=== PATIENT | male | born 1950 | race Caucasian/White ===

== ENCOUNTER → 2019-08-06 10:32 | Outpatient (ROUT) | payer SELFPAY ==
[2019-08-06 10:39] LABS: Add Manual Diff / Slide Review NO; Basophils Absolute Auto 0 /uL (0-100); Basophils Percent Auto 0.5 % (0-2); Eosinophils Absolute Auto 200 /uL (0-450); Eosinophils Percent Auto 3.3 % (2-4); Hematocrit 41.5 % (41-53); Hemoglobin 13.9 g/dL (13.5-17.5); Lymphocytes Absolute Auto 1300 /uL (1100-4500); Lymphocytes Percent Auto 17.1 % (25-40); Mean Corpuscular HGB Conc 33.4 % (30-36); Mean Corpuscular Hemoglobin 28.9 PG (26-34); Mean Corpuscular Volume 86.4 fL (80-100); Monocytes Absolute Auto 400 /uL (0-900); Monocytes Percent Auto 5.4 % (3-14); Neutrophils Absolute Auto 5500 /uL (1500-7000); Neutrophils Percent Auto 73.7 % (50-75); Platelet Count 282 X10^3/uL (150-400); Red Blood Cell Count 4.81 X10^6/uL (4.5-5.9); Red Cell Distribution Width 15.4 % (11.6-14.8); White Blood Cell Count 7.4 X10^3/uL (4.5-11.0)
[2019-08-06 10:40] LABS: Appearance Urine UA CLOUDY; Bilirubin Urine UA NEGATIVE (NEGATIVE); Color Urine UA RED; Glucose Urine UA NEGATIVE (Negative); Ketones Urine UA NEGATIVE (NEGATIVE); Leukocyte Esterase Urine UA 2+ (NEGATIVE); Nitrite Urine UA NEGATIVE (Negative); Occult Blood Urine UA 3+ (Negative); Protein Urine UA 1+ (Negative); Specific Gravity Urine UA 1.015 (1.000-1.035); Urobilinogen Urine UA 0.2 E.U./dL (0.2); pH Urine UA 7.5 (4.5-8.0)
[2019-08-06 10:51] LABS: Alanine Aminotransferase 140 IU/L (<50); Albumin 3.5 g/dL (3.5-5.0); Alkaline Phosphatase 162 U/L (38-126); Aspartate Aminotransferase 129 IU/L (17-59); BUN Creatinine Ratio 32.5 (6-22); Bacteria Urine Few (2-10); Bilirubin Total 0.7 mg/dL (0.2-1.3); Blood Urea Nitrogen 39 mg/dL (9-20); Calcium 9.4 mg/dL (8.4-10.2); Carbon Dioxide 29 mmol/L (22-32); Chloride 105 mmol/L (98-107); Estimated Glomerular Filt Rate 59.9 mL/min (>60); Globulin 3.6 g/dL (1.7-4.1); Glucose 98 mg/dL (80-110); HEMOLYSIS < 15 (0-50); Potassium 4.1 mmol/L (3.4-5.1); RBC Urine >100/HPF (0-5/HPF); Sodium 139 mmol/L (137-145); Squamous Epithelial Cell Urine 0-1 /HPF (0-5/HPF); Total Protein 7.1 g/dL (6.3-8.2); WBC Urine 1-5/HPF (0-5/HPF)
[2019-08-06 10:52] LABS: Culture Indicated Urine Specimen Cultured
[2019-08-06 23:36] LABS: COVID19 Sendout Not Detected (Not Detect)
== END ==
PROVIDERS: PCP Internal Medicine; Visit Provider Internal Medicine
DX: R31.9 Hematuria, unspecified (principal)
CPT/HCPCS: 80053; 81001; 85025; 87086; 87635

== ENCOUNTER → 2020-12-07 13:36 | Outpatient (CLI) | payer MEDICARE, MEDICAID, SELFPAY ==
--- NOTE | 2020-12-07 13:46 | DI.RAD.S_ITS ---
PROCEDURE: XR TIBIA FUBULA RT 2V INDICATIONS: RT LOWER LEG LESION TECHNIQUE: 2 views of the tibia and fibula were acquired. COMPARISON: None. FINDINGS: Bones: No fractures or dislocations. No suspicious bony lesions. Soft tissues: Nonspecific anterior subcutaneous soft tissue calcifications IMPRESSION: Nonspecific anterior subcutaneous soft tissue calcifications. These could be phleboliths related to hemangioma. These could also be dystrophic in nature. If the patient's pain or other symptoms persist, consider further evaluation with MRI Dictated by: Rob Govea M.D. on 12/07/2020 at 16:34 Approved by: Rob Govea M.D. on 12/07/2020 at 16:36
== END ==
PROVIDERS: PCP Internal Medicine; Referring Provider Nurse Practitioner; Visit Provider Nurse Practitioner
DX: S89.91XD Unspecified injury of right lower leg, subsequent encounter (principal)
CPT/HCPCS: 73590

== ENCOUNTER 2021-03-25 11:58 | Inpatient (IN) | payer MEDICARE, MEDICAID, SELFPAY ==
[2021-03-25] VITALS (18 sets, daily range): BP systolic 116–180; BP diastolic 84–112; PULSE 62–99; RESP 11–21; TEMP 36.1–36.6; O2SAT 96–99; BMI 29.0; BMI 28.8
--- NOTE | 2021-03-25 11:57 | DI.CT.S_ITS ---
PROCEDURE: CT STROKE INDICATIONS: TPA CANDIDATE, facial droop, headache TECHNIQUE: Noncontrast 4.5 mm thick angled axial sections acquired from the foramen magnum to the vertex, with coronal reformats. For radiation dose reduction, the following was used: automated exposure control, adjustment of mA and/or kV according to patient size. COMPARISON: [facility], CT, CT ANGIO HEAD AND NECK, 03/25/2021, 12:09. FINDINGS: Image quality: Excellent. CSF spaces: Basal cisterns are patent. No extra-axial fluid collections. The ventricles are symmetric in size and shape. Brain: There is cerebral volume loss compatible with age and microvascular ischemic disease. Hypodensity involving the right frontal and parietal lobe in an MCA distribution is seen consistent with infarction of indeterminate however associated atrophy in this region suggests a remote infarct.. There is a 5 x 8 mm lacunar infarct in the left thalamus. Multiple smaller lacunar infarcts are present in the bilateral basal ganglia and right thalamus. No intracranial bleeds or masses. There is cerebral volume loss for age, with resultant ventricular and sulcal prominence. There are periventricular and deep white matter chronic small vessel ischemic changes. There is intracranial internal carotid artery atherosclerosis. Skull and face: Calvarium and visualized facial bones appear intact, without suspicious lesions. Sinuses: Visualized sinuses and mastoids are clear. IMPRESSION: 1. 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 2. Cerebral volume loss likely related to age. 3. Microvascular ischemic disease. This study fulfills neurological imaging criteria for inclusion or exclusion of acute stroke therapies based on available published neurological guidelines. Dictated by: Chago Olson M.D. on 03/25/2021 at 11:25 Approved by: Chago Olson M.D. on 03/25/2021 at 11:35
--- NOTE | 2021-03-25 11:58 | DI.CT.S_ITS ---
PROCEDURE: CT ANGIO HEAD AND NECK INDICATIONS: facial droop, headache TECHNIQUE: After the administration of intravenous contrast, 1 mm thick sections acquired from the aortic arch through the [place] of [place]. Post-contrast 4.5 mm thick sections then re-acquired from the foramen magnum to the vertex. 3-dimensional znkedyc-nsqpscfwg-zqhjeblcof (MIP) and/or volume rendering reformats were acquired of the central intracranial vasculature and neck separately. COMPARISON: [facility], CT, CT STROKE, 03/25/2021, 12:06. FINDINGS: Image quality: Excellent. BRAIN: CSF spaces: Ventricles are normal in size and shape. Basal cisterns are patent. No extra-axial fluid collections. Brain: No midline shift. No intracranial bleeds or masses. Hernandez-white matter interface appears intact. Right MCA infarct of indeterminate age but likely chronic given associated atrophy. Multiple lacunar infarcts as described on separately detailed CT of the head dictation. No abnormal enhancement. Skull and face: Calvarium and facial bones appear intact, without suspicious lesions. Orbits appear normal. Sinuses: Sinuses and mastoids are clear. HEAD CT ANGIOGRAPHY: Anterior circulation: Diffuse irregularity of the vessels is consistent underlying atherosclerotic. Intracranial internal carotid arteries are normal in size and flow. The flow within the paired anterior cerebral arteries is normal and symmetric. The flow within the middle cerebral arteries is intact but increased on the left compared to the right, likely due to underlying right ICA occlusion. The anterior communicating artery is seen. No aneurysms are seen. Posterior circulation: Diffuse irregularity of the vessels is consistent with underlying atherosclerotic disease. The left vertebral artery is dominant. 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 The delivery stock clerk are patent and symmetric. NECK CT ANGIOGRAPHY: Carotid system: The great vessels demonstrate a conventional anatomy as they arise from the aortic arch. The origins of the common carotid arteries appear patent. The common carotid arteries demonstrate normal caliber and courses. The right ICA is occluded from the bifurcation cephalad. The left ICA has atherosclerotic disease at the bulb but is patent with no significant stenosis throughout its course. Posterior circulation: The origins of the vertebral arteries both appear widely patent. The more superior extracranial portions of both vertebral arteries also demonstrate normal courses and calibers. They join to form a normal appearing basilar artery. Soft tissues: Visualized neck soft tissues demonstrate no suspicious abnormalities. Bones: No suspicious bony lesions. Visualized cervical spine appears normally aligned. IMPRESSION: 1. Occlusion of the right ICA. 2. Diffuse atherosclerotic disease but with no focal stenosis in the left ICA or vertebral arteries. Findings were discussed with Dr. Vega. Any quantitative measurements of stenosis were performed using NASCET criteria. Dictated by: Chago Olson M.D. on 03/25/2021 at 11:36 Approved by: Chago Olson M.D. on 03/25/2021 at 11:42
[2021-03-25] MEDS: SODIUM CHLORIDE 0.9% 1,000 ML 150 ML IV ×2 (12:22→18:18)
--- NOTE | 2021-03-25 12:24 | ED_ITS ---
HPI - Neuro Symptoms/Deficit General Chief Complaint: Neuro Symptoms/Deficit Stated Complaint: Code stroke Time Seen by Provider: 03/25/21 12:24 Source: EMS Mode of arrival: EMS Limitations: no limitations History of Present Illness HPI Narrative: This is a 70-year-old male who woke up in his usual state. He was complaining of a headache to members at his facility. While playing bingo he started sort of dropping his head down and being less responsive and they noted he seemed to have a new left facial droop. Patient is complaining of some right-sided weakness and difficulty with movement. He has a left-sided deficit from prior stroke. He used to be on warfarin but now is on Eliquis 10 states he takes his meds daily. He has had some difficulty getting his speech out which is new according to staff members. Patient also takes medication for hypertension and dyslipidemia and has a history of atrial fibrillation. He denies any surgeries besides tonsillectomy he does have a PEG tube which he states he takes his medications but he still eats. He denies tobacco, alcohol or illicit. Dr. Chilel is his PCP. On Anticoagulants: Yes (eliquis) Related Data Home Medications Medication Instructions Recorded Confirmed amlodipine 5 mg tablet (Norvasc) 5 mg PO QDAY #0 03/14/16 03/25/21 aspirin 81 mg tablet,delayed 81 mg PO QDAY #0 03/14/16 03/25/21 release apixaban 5 mg tablet (Eliquis) 5 mg PO BID 03/25/21 03/25/21 atorvastatin 40 mg tablet 40 mg PO BEDTIME 03/25/21 03/25/21 carvedilol 12.5 mg tablet 12.5 mg PO BID 03/25/21 03/25/21 doxazosin 2 mg tablet 6 mg PO BEDTIME 03/25/21 03/25/21 famotidine 40 mg PO DAILY 03/25/21 03/25/21 hydralazine 10 mg tablet 20 mg PO DAILY 03/25/21 03/25/21 levothyroxine 125 mcg tablet 125 mcg PO DAILY 03/25/21 03/25/21 losartan 25 mg tablet 25 mg PO DAILY 03/25/21 03/25/21 sertraline 50 mg tablet 50 mg PO DAILY 03/25/21 03/25/21 Allergies Allergy/AdvReac Type Severity Reaction Status Date / Time Macrolide Antibiotics Allergy Intermediate RASH Verified 03/25/21 12:14 [MACROLIDE ANTIBIOTICS] mercury (elemental) Allergy Mild RASH Verified 03/25/21 12:14 [MERCURY (ELEMENTAL)] erythromycin base Allergy Unknown RASH Verified 03/25/21 12:14 [ERYTHROMYCIN BASE] Review of Systems Review of Systems ROS Unobtainable: All systems reviewed & are unremarkable except as noted in HPI and below Hematologic/Lymphatic On Anticoagulants: Yes (eliquis) Patient History Social History household members: none Exam Narrative Exam Narrative: GEN: well nourished, well appearing male, alert and oriented, patient appears to be in mild distress. Patient does have difficulty with some questions. HEENT: Atraumatic, pupils are equal round reactive to light, extraocular movements are intact but unable to have patient follow my fingers he does not follows command, are clear, Throat is clear without any exudates, erythema, tonsillar enlargement or uvular deviation, left facial droop. The nasal labial fold. Patient does have some dysarthria. HEART: Regular rate and rhythm without murmur, clicks, rubs. Pulses are equal in upper and lower extremities LUNGS:Lungs clear to auscultation, no wheezes, rales, crackles, chest moves sy mmetrically ABD:bowel sounds normal, soft, non-tender, no guarding, rebound, rigidity, no masses noted, no hepatosplenomegaly :No CVA tenderness MSCL: Non-tender, patient has chronic left-sided deficit with no movement of his left upper lower extremity. Right upper extremity were able to have him hold his arm but it drifts down to the bed. He is not able to lift it up the bed. Patient is not really able to lift his leg or hold his leg up off the bed. NEURO:CN 2-12 intact, sensation normal. Patient unable to perform heel-azar. Initial Vital Signs Initial Vital Signs: Vital Signs Temperature 97.8 F 03/25/21 12:00 Pulse Rate 86 03/25/21 12:00 Respiratory Rate 21 03/25/21 12:00 Blood Pressure 139/95 H 03/25/21 12:00 Pulse Oximetry 96 03/25/21 12:00 Scores NIH Stroke Scale Level of Conciousness: Alert, keenly responsive Ask month/age: Answers both questions correctly. Open/close eyes, close hand: Performs both tasks correctly Best gaze horizontal: Forced deviation or total gaze paresis not overcome (cannot get patient to follow command but alert and follows other commands) Visual mayo: No visual loss Facial palsy: Minor paralysis, flattened nasolabial fold, asymmetry on smiling Left arm drift: No movement (baseline for patient) Right arm drift: Some effort against gravity, cannot maintain, drifts down to bed Left leg drift: No movement (baseline ) Right leg drift: No effort against gravity Limb ataxia: Present in two limbs Sensory on face/arms/legs: Normal, no sensory loss Best language: No aphasia, normal Dysarthria: Mild to mod,some slurring Extinction or inattention: No abnormality Total NIH Stroke scale score: 19 Course Orders Ordered: ED Orders 03/25/21 11:57 CT Stroke Stat Urine Drug Screen, Rapid Stat EKG-12 Lead Stat 03/25/21 11:58 CT angio head and neck Stat 03/25/21 12:18 Basic Metabolic Panel Stat Complete Blood Count AUTO DIFF Stat Partial Thromboplastin Time Stat Prothrombin Time INR Stat Troponin & CK Cardiac Panel Stat 03/25/21 13:43 COVID19 - ADMIT (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/PCR) Stat Acetaminophen (Acetaminophen 325 Mg Tablet) 650 mg PO Q6HR PRN PRN Reason: Fever/Mild Pain (1-3) Amlodipine Besylate (Amlodipine 5 Mg Tablet) 5 mg PO DAILY DE Apixaban (Apixaban 5 Mg Tablet) 5 mg PO BID DE Aspirin (Aspirin Ec 81 Mg Tablet) 81 mg PO DAILY DE Atorvastatin Calcium (Atorvastatin 20 Mg Tablet) 40 mg PO BEDTIME DE Carvedilol (Carvedilol 3.125 Mg Tablet) 6.25 mg PO DAILY DE Carvedilol (Carvedilol 12.5 Mg Tablet) 12.5 mg PO BID DE Doxazosin Mesylate (Doxazosin 4 Mg Tablet) 6 mg PO BEDTIME DE Famotidine (Famotidine 20 Mg Tablet) 20 mg PO DAILY DE Hydralazine HCl (Hydralazine 10 Mg Tablet) 20 mg PO Q6H PRN PRN Reason: BP > 220/120 Hydralazine HCl (Hydralazine 10 Mg Tablet) 10 mg PO DAILY DE Sodium Chloride (Normal Saline 0.9%) 1,000 mls @ 150 mls/hr IV CONT DE Stop: 03/26/21 09:00 Last Admin: 03/25/21 18:18 Dose: 150 mls/hr Documented by: VERONICA Levothyroxine Sodium (Levothyroxine 125 Mcg Tablet) 125 mcg PO DAILY@0600 [facility] Losartan Potassium (Losartan 25 Mg Tablet) 25 mg PO DAILY [facility] Magnesium Hydroxide (Magnesium Hydroxide 30 Ml Udc) 30 ml PO DAILY PRN PRN Reason: Constipation Naloxone HCl (Naloxone 0.4 Mg/Ml Vial) 0.2 mg IV Q2MIN PRN PRN Reason: Opiate Reversal Sertraline HCl (Sertraline 50 Mg Tablet) 50 mg PO DAILY DE Sodium Chloride (Sodium Chloride 0.9% Flush) 10 ml IV PRN PRN PRN Reason: Flush Sodium Chloride (Sodium Chloride 0.9% Flush) 10 ml IV BID [facility] Discontinued Medications Aspirin (Aspirin 81 Mg Chew Tab) 324 mg PO NOW ONE Stop: 03/25/21 13:25 Last Admin: 03/25/21 14:13 Dose: 324 mg Documented by: PRABHAKAR Dextrose (Dextrose 50 % In Water 25 Gm/50 Ml Syringe) 25 gm IV NOW ONE Stop: 03/25/21 12:26 Last Admin: 03/25/21 12:29 Dose: 12.5 gm Documented by: CASSIUSOTEM Sodium Chloride (Normal Saline 0.9%) 1,000 mls @ 150 mls/hr IV CONT DE Stop: 03/26/21 09:00 Last Infusion: 03/25/21 18:17 Dose: 0 mls/hr Documented by: Infusion: 03/25/21 14:57 Dose: 0 mls/hr Documented by: Admin: 03/25/21 12:22 Dose: 150 mls/hr Documented by: HUGO Reevaluation(s) Reevaluation #1: On recheck patient's weakness has improved significantly he is able to lift his right arm independently as well as his right leg. His speech is also significa ntly improved and his mentation seems improved as well. He also seems to have more appropriate movement of his eyes. Consultations Consultation #1: Tele-stroke Dr. Wong, not tpa candidate. Does not appear to have any changes consistent with having interventional thrombolysis/clot retreival. Agrees with plan for observation for stroke. Time: Consultation #2: Dr. Martinez, and accepts for admission. Patient has had acute right-sided weakn ess with prior stroke. Patient is anticoagulated on Eliquis. We discussed findings today on imaging, labs and recommendations from telestroke. Dr. Martinez did come to the department and see the patient. Vital Signs Vital signs: Vital Signs - 8 hr 03/25/21 12:00 03/25/21 13:02 03/25/21 13:15 Temperature 97.8 F Pulse Rate 86 67 62 Respiratory Rate 21 19 12 Blood Pressure 139/95 H 158/84 H Pulse Oximetry 96 97 97 03/25/21 13:30 03/25/21 13:45 03/25/21 14:00 Temperature Pulse Rate 69 67 71 Respiratory Rate 21 20 12 Blood Pressure 151/84 H 180/88 H Pulse Oximetry 98 96 97 03/25/21 14:01 03/25/21 14:30 Temperature Pulse Rate 66 71 Respiratory Rate 12 11 L Blood Pressure 174/91 H 159/89 H Pulse Oximetry 96 98 MDM - Neuro Symptoms/Deficit Lab Data Result diagrams: 03/25/21 12:18 03/25/21 12:18 Labs: Lab Results 03/25/21 03/25/21 03/25/21 Range/Units 12:18 12:18 12:18 WBC 6.0 (4.5-11.0) X10^3/uL RBC 4.80 (4.5-5.9) X10^6/uL Hgb 14.8 (13.5-17.5) g/dL Hct 44.0 (41-53) % MCV 91.6 (80-100) fL MCH 30.9 (26-34) PG MCHC 33.7 (30-36) % RDW 14.0 (11.6-14.8) % Plt Count 208 (150-400) X10^3/uL Neut % (Auto) 75.7 H (50-75) % Lymph % (Auto) 14.0 L (25-40) % Liberty % (Auto) 7.3 (3-14) % Eos % (Auto) 2.5 (2-4) % Baso % (Auto) 0.5 (0-2) % Neut # (Auto) 4500 (5649-6814) /uL Lymph # (Auto) 800 L (0928-3734) /uL Liberty # (Auto) 400 (0-900) /uL Eos # (Auto) 200 (0-450) /uL Baso # (Auto) 0 (0-100) /uL PT 19.6 H (10.1-12.7) SECONDS INR 1.7 H (0.9-1.3) APTT 41 H (26.4-36.2) SECONDS Sodium 140 (137-145) mmol/L Potassium 4.0 (3.4-5.1) mmol/L Chloride 105 (98-107) mmol/L Carbon Dioxide 30 (22-32) mmol/L BUN 22 H (9-20) mg/dL Creatinine 1.20 (0.66-1.25) mg/dL Estimated GFR 59.7 L (>60) mL/min BUN/Creatinine Ratio 18.3 (6-22) Glucose 88 (80-110) mg/dL Calcium 9.2 (8.4-10.2) mg/dL Total Creatine Kinase < 20 L (55-170) U/L CK-MB (CK-2) TNP CK-MB (CK-2) Rel Index TNP Troponin I < 0.012 (0.01-0.034) ng/mL Triglycerides (35-150) mg/dL Cholesterol (140-199) mg/dL LDL Cholesterol, Calc (<100) mg/dL HDL Cholesterol (40-60) mg/dL SARS-CoV-2 (PCR) (Negative) 03/25/21 03/25/21 Range/Units 12:27 13:43 WBC (4.5-11.0) X10^3/uL RBC (4.5-5.9) X10^6/uL Hgb (13.5-17.5) g/dL Hct (41-53) % MCV (80-100) fL MCH (26-34) PG MCHC (30-36) % RDW (11.6-14.8) % Plt Count (150-400) X10^3/uL Neut % (Auto) (50-75) % Lymph % (Auto) (25-40) % Liberty % (Auto) (3-14) % Eos % (Auto) (2-4) % Baso % (Auto) (0-2) % Neut # (Auto) (7604-6426) /uL Lymph # (Auto) (0086-3880) /uL Liberty # (Auto) (0-900) /uL Eos # (Auto) (0-450) /uL Baso # (Auto) (0-100) /uL PT (10.1-12.7) SECONDS INR (0.9-1.3) APTT (26.4-36.2) SECONDS Sodium (137-145) mmol/L Potassium (3.4-5.1) mmol/L Chloride (98-107) mmol/L Carbon Dioxide (22-32) mmol/L BUN (9-20) mg/dL Creatinine (0.66-1.25) mg/dL Estimated GFR (>60) mL/min BUN/Creatinine Ratio (6-22) Glucose (80-110) mg/dL Calcium (8.4-10.2) mg/dL Total Creatine Kinase (55-170) U/L CK-MB (CK-2) CK-MB (CK-2) Rel Index Troponin I (0.01-0.034) ng/mL Triglycerides 52 (35-150) mg/dL Cholesterol 94 L (140-199) mg/dL LDL Cholesterol, Calc 52 (<100) mg/dL HDL Cholesterol 32 L (40-60) mg/dL SARS-CoV-2 (PCR) Negative (Negative) Point of Care Testing Glucose POC 89 Imaging Data CTA - brain/neck: Radiologist's Impression: Chandu Vences??70??M??1950 ? Allergy/Adv: Macrolide Antibiotics, mercury (elemental), erythromycin base (More??) Close Head/Neck CTA (Signed) Chago Olson - 03/25/[address] (Signed) Chago Olson - 03/25/21 Tibia/Fibula X-Ray (Signed) Rob Govea - 12/07/20 Launch?[address] [address] [address] Scan Report Signed Patient: Chandu Vences MR#: [id number] : 1950 Acct:[id number] Age/Sex: 70 / M Date of Service: 03/25/21 Loc: ED Accession Number: [id number] ?? Procedure: CT angio head and neck Ordering Provider: Leeanne Vega D.O. PROCEDURE:? CT ANGIO HEAD AND NECK ? INDICATIONS:? facial droop, headache ? TECHNIQUE:? ? After the administration of intravenous contrast, 1 mm thick sections acquired from the aortic arch through the [place].? Post-contrast 4.5 mm thick sections then re-acquired from the foramen magnum to the vertex.? 3-dimensional anesrko-eccdhjzqm-wjbmkldbju (MIP) and/or volume rendering reformats were acquired of the central intracranial vasculature and neck separately. ? COMPARISON:? [facility], CT, CT STROKE, 03/25/2021, 12:06. ? FINDINGS:? Image quality:? Excellent.? ? BRAIN:? CSF spaces:? Ventricles are normal in size and shape.? Basal cisterns are patent.? No extra-axial fluid collections.? ? Brain:? No midline shift.? No intracranial bleeds or masses.? Hernandez-white matter interface appears intact.? Right MCA infarct of indeterminate age but likely chronic given associated atrophy.? Multiple lacunar infarcts as described on separately detailed CT of the head dictation.? No abnormal enhancement. ? Skull and face:? Calvarium and facial bones appear intact, without suspicious le sions.? Orbits appear normal.? ? Sinuses:? Sinuses and mastoids are clear.? ? HEAD CT ANGIOGRAPHY:? Anterior circulation:? Diffuse irregularity of the vessels is consistent underlying atherosclerotic.? Intracranial internal carotid arteries are normal in size and flow.? The flow within the paired anterior cerebral arteries is normal and symmetric.? The flow within the middle cerebral arteries is intact but increased on the left compared to the right, likely due to underlying right ICA occlusion.? The anterior communicating artery is seen.? No aneurysms are seen.? ? Posterior circulation:? Diffuse irregularity of the vessels is consistent with underlying atherosclerotic disease.? The left vertebral artery is dominant.? The right vertebral artery has a decreased caliber just proximal to the confluence to form the basilar artery likely congenital.? The financial investment adviser are patent and symmetric.? ? NECK CT ANGIOGRAPHY:? Carotid system:? The great vessels demonstrate a conventional anatomy as they arise from the aortic arch.? The origins of the common carotid arteries appear patent.? The common carotid arteries demonstrate normal caliber and courses.? The right ICA is occluded from the bifurcation cephalad.? The left ICA has atherosclerotic disease at the bulb but is patent with no significant stenosis throughout its course. ? Posterior circulation:? The origins of the vertebral arteries both appear widely patent.? The more superior extracranial portions of both vertebral arteries also demons trate normal courses and calibers.? They join to form a normal appearing basilar artery.? ? Soft tissues:? Visualized neck soft tissues demonstrate no suspicious abnormalities.? ? Bones:? No suspicious bony lesions.? Visualized cervical spine appears normally aligned.? IMPRESSION:? 1. Occlusion of the right ICA. 2. Diffuse atherosclerotic disease but with no focal stenosis in the left ICA or vertebral arteries. ? ? Findings were discussed with Dr. Vega. ? Any quantitative measurements of stenosis were performed using NASCET criteria.? ? ? Dictated by: Chago Olson M.D. on 03/25/2021 at 11:36 ? ? Approved by: Chago Olson M.D. on 03/25/2021 at 11:42?? CT scan - head: Radiologist's Impression: Launch?[place] [address] CT Scan Report Signed Patient: Chandu Vences MR#: [id number] : 1950 Acct:[id number] Age/Sex: 70 / M Date of Service: 03/25/21 Loc: ED Accession Number: [id number] ?? Procedure: CT Stroke Ordering Provider: Leeanne Vega D.O. PROCEDURE:? CT STROKE ? INDICATIONS:? TPA CANDIDATE, facial droop, headache ? TECHNIQUE:? Noncontrast 4.5 mm thick angled axial sections acquired from the foramen magnum to the vertex, with coronal reformats.? For radiation dose reduction, the following was used:? automated exposure control, adjustment of mA and/or kV according to patient size.? ? COMPARISON:? [facility], CT, CT ANGIO HEAD AND NECK, 03/25/2021, 12:09. ? FINDINGS:? Image quality:? Excellent.? ? CSF spaces:? Basal cisterns are patent.? No extra-axial fluid collections.? The ventricles are symmetric in size and shape.? ? Brain:? There is cerebral volume loss compatible with age and microvascular ischemic disease.? Hypodensity involving the right frontal and parietal lobe in an MCA distribution is seen consistent with infarction of indeterminate however associated atrophy in this region suggests a remote infarct..? There is a 5 x 8 mm lacunar infarct in the left thalamus.? Multiple smaller lacunar infarcts are present in the bilateral basal ganglia and right thalamus.? No intracranial bleeds or masses.? There is cerebral volume loss for age, with resultant ventricular and sulcal prominence.? There are periventricular and deep white matter chronic small vessel ischemic changes.? There is intracranial internal carotid artery atherosclerosis.? ? Skull and face:? Calvarium and visualized facial bones appear intact, without suspicious lesions.? ? Sinuses:? Visualized sinuses and mastoids are clear.? ? IMPRESSION:? 1. Right MCA distribution infarction of indeterminate age, however given ass ociated atrophy is likely chronic. 2. Cerebral volume loss likely related to age. 3. Microvascular ischemic disease.? ? This study fulfills neurological imaging criteria for inclusion or exclusion of acute stroke therapies based on available published neurological guidelines.? ? ? Dictated by: Chago Olson M.D. on 03/25/2021 at 11:25 ? ? Approved by: Chago Olson M.D. on 03/25/2021 at 11:35?? ECG Data Attestation: I personally reviewed and interpreted this ECG as follows: Prior ECG tracings: not available for review Interpretation: This is a 70-year-old male comes emergency department with atrial fibrillation, rate of 73 QRS of 96 and QTC of 447. No acute ST changes appreciated. Patient is in AFib. No priors. MDM Narrative Medical decision making narrative: This is a 70-year-old male who had acute onset of facial droop that is new per EMS and his care facility. Patient is unable to lift his arm but can not hold it when lifted. He has difficulty moving his right lower extremity. He is not able to easily follow commands but his NIH is quite high. He has chronic left- sided deficit with no movement. He has a known prior stroke which is seen on his CT angiography and has right ICA occlusion and changes consistent with his prior stroke but no clear changes on CT or CT angiography that would make him a clot retrieval candidate. His INR is 1.7 he is on Eliquis which also removed him from tPA candidacy. I did discuss this with telestroke are reviewed his images closely and feels he is not a candidate for transfer or intervention. Patient did have improvement while he was in the department. He was given aspirin via his PEG tube and admitted by Dr. Her rothman for evaluation and workup for stroke. Stroke Core Measures Contraindications for TPA in CVA: INR>1.7 (on Eliquis) Discharge Plan Departure Patient Disposition: Admitted As Inpatient Clinical Impression: Acute CVA (cerebrovascular accident) Admit Date/Time: 03/25/21 14:34 Admit Provider: Augusto Martinez
[2021-03-25] MEDS: DEXTROSE 50 % IN WATER 25 GM/50 ML SYRINGE IV (12:29)
[2021-03-25 12:30] LABS: Add Manual Diff / Slide Review NO; Basophils Absolute Auto 0 /uL (0-100); Basophils Percent Auto 0.5 % (0-2); Eosinophils Absolute Auto 200 /uL (0-450); Eosinophils Percent Auto 2.5 % (2-4); Hemoglobin 14.8 g/dL (13.5-17.5); Lymphocytes Absolute Auto 800 /uL (1100-4500); Mean Corpuscular HGB Conc 33.7 % (30-36); Mean Corpuscular Hemoglobin 30.9 PG (26-34); Mean Corpuscular Volume 91.6 fL (80-100); Monocytes Absolute Auto 400 /uL (0-900); Monocytes Percent Auto 7.3 % (3-14); Neutrophils Absolute Auto 4500 /uL (1500-7000); Neutrophils Percent Auto 75.7 % (50-75); Platelet Count 208 X10^3/uL (150-400)
[2021-03-25 12:38] LABS: INR 1.7 (0.9-1.3); Prothrombin Time 19.6 SECONDS (10.1-12.7)
[2021-03-25 12:40] LABS: PTT Partial Thromboplastin Tim 41 SECONDS (26.4-36.2)
[2021-03-25 12:44] LABS: BUN Creatinine Ratio 18.3 (6-22); Blood Urea Nitrogen 22 mg/dL (9-20); Calcium 9.2 mg/dL (8.4-10.2); Carbon Dioxide 30 mmol/L (22-32); Chloride 105 mmol/L (98-107); Creatine Kinase < 20 U/L (55-170); Estimated Glomerular Filt Rate 59.7 mL/min (>60); Glucose 88 mg/dL (80-110); HEMOLYSIS < 15 (0-50); Sodium 140 mmol/L (137-145)
[2021-03-25 12:56] LABS: Troponin I < 0.012 ng/mL (0.01-0.034)
--- NOTE | 2021-03-25 13:09 | PC.NURSE ---
Pt gave permission to update friend Paola on the phone.
[2021-03-25] MEDS: ASPIRIN 81 MG CHEW TAB 324 MG PO (14:13)
--- NOTE | 2021-03-25 14:24 | PC.NURSE ---
Pt states he eats food but receives medications through his peg tube. Aspirin administered through peg tube without difficulty, drains to gravity.
[2021-03-25 14:34] LABS: COVID19 - ADMIT (NP swab/PCR) Negative (Negative)
--- NOTE | 2021-03-25 15:25 | PC.NURSE ---
Day shift: Pt on AC unit from ED at approx 1510. He is calm and cooperative with care. Answers questions appropriately. Very limited movement left side upper and lower extremities. Placed on tele. Denies any pain. PEG tube appears patent. Skin on his coccyx area intact. Skin on his back with no signs of abrasions or breakdown. He does have a brief in place. Oriented to room and call light. Bed alarm is on. High fall risk protocol in place. He is A&Ox4. Prefers the use of his PEG tube for medications. He also states that they use the PEG tube for meds at [facility].
--- NOTE | 2021-03-25 15:57 | DI.MRI.S_ITS ---
PROCEDURE: MR HEAD/BRAIN WO CON INDICATIONS: CVA TECHNIQUE: Noncontrast axial T1 spin echo, axial T2 fast spin echo, sagittal and axial FLAIR, coronal T2 fast spin echo, axial gradient echo, axial diffusion and ADC through the brain. COMPARISON: [facility], CT, CT STROKE, 03/25/2021, 12:06. FINDINGS: Image quality: Excellent. CSF Spaces: Basal cisterns are patent. No extra-axial fluid collections. Ventricles are normal in size and shape. Brain: No intracranial masses or hemorrhage. Hernandez/white matter interface is normal. Brainstem appears normal. Punctate subcortical and periventricular T2/FLAIR signal is consistent with microvascular ischemic disease. Punctate subcortical and periventricular T2/FLAIR signal is consistent with microvascular ischemic disease. Multiple areas of lacunar infarcts in the right basal ganglia and bilateral thalami. There is cystic encephalomalacia in the right frontal lobe. Low signal on gradient images in the right basal ganglia is consistent with blood products from remote hemorrhage. No evidence of acute hemorrhage. Diffusion-weighted images demonstrate no acute ischemic insult. No chronic ischemic insults. Flow voids in the right ICA consistent with known right ICA occlusion are noted. Skull and face: Calvarium has normal marrow signal. Orbits appear normal. Sinuses: Sinuses and mastoids are clear. IMPRESSION: 1. No acute intracranial abnormality. No acute ischemia. No acute hemorrhage. 2. Remote infarct with cystic encephalomalacia and evidence of remote hemorrhage in the right frontal lobe. Dictated by: Chago Olson M.D. on 03/25/2021 at 16:10 Approved by: Chago Olson M.D. on 03/25/2021 at 16:16
--- NOTE | 2021-03-25 15:57 | DI.ECHO.S_ITS ---
[facility] +---------+ [facility] +---------+ : : [address] : [address] : : : : [id number] : : : : Phone: [phone]+ Echocardiogram Report + + :Name: PHYLLIS COX Study Date: 03/26/2021 Height: 70 in : :[facility] ReadingLocation: Weight: 202 lb : : Gender: Male BSA: 2.1 m2 : :: 1950 Age: 70 yrs BP: 148/95 mmHg: :Reason For Study: CVA : :Ordering Physician: CHANDLER, : :FRACISCO Performed By: Elizabeth Crowe : :Referring: FRACISCO ARTEAGA : + + Interpretation Summary Afib with controlled rate. Normal LV size, wall thickness, wall motion and LV systolic function. EF is 60-65%. Severe LA enlargement; mild RA enlargement. Aortic sclerosis without stenosis. No prior study available for comparison. Procedure: A two-dimensional transthoracic echocardiogram with color flow and Doppler was performed. The study quality was technically adequate. There is no prior echocardiogram noted for this patient. The patient was in atrial fibrillation with heart rates between 62-80 bpm during the exam. Left Ventricle: The left ventricle is normal in size. There is mild-moderate concentric left ventricular hypertrophy. The ejection fraction is estimated to be 60-65%. Diastolic function could not be accurately assessed due to atrial fibrillation. Right Ventricle: The right ventricle is mildly dilated. The right ventricular systolic function is normal. Atria: The left atrium is severely dilated. The right atrium is mildly dilated. There is no Doppler evidence for an interatrial shunt. Mitral Valve: The mitral valve is normal in structure and function. There is trace mitral regurgitation. Aortic Valve: The aortic valve is trileaflet. The aortic valve opens well. The aortic valve is mildly calcified. There is no aortic valve stenosis. No aortic regurgitation is present. Tricuspid Valve: The tricuspid valve is normal in structure and function. There is trace tricuspid regurgitation. Pulmonic Valve: The pulmonic valve is not well seen, but is grossly normal. There is no pulmonic valvular regurgitation. Great Vessels: The aortic root is normal size. The inferior vena cava was not well visualized. Pericardium/ Pleura There is no pericardial effusion. There is no pleural effusion. MMode/2D Measurements & Calculations LVIDd: 4.6 cm LVOT diam: 2.1 cm LVIDs: 3.1 cm Ao root diam: 3.5 cm FS: 31.8 % asc Aorta Diam: 4.0 cm IVSd: 1.5 cm Ao Arch Diam (Prox Trans): 3.6 cm LVPWd: 1.2 cm LV ruiz. diameter/BSA (cm/m^2): 2.2 LV sys. diameter/BSA (cm/m^2): 1.5 LA A2 area: 30.2 cm2 RA long axis: 6.9 cm LA A4 area: 31.1 cm2 RA area: 25.5 cm2 LA length (vol): 7.0 cm RA vol: 79.7 ml LA vol: 114.0 ml RA : 38.0 ml/m2 LA vol index: 54.4 ml/m2 RVD1 (basal): 4.4 cm TAPSE: 2.0 cm Doppler Measurements & Calculations Ao V2 max: 161.9 cm/sec LVOT Max Jesse: 76.9 cm/sec Ao V2 mean: 107.3 cm/sec LV V1 max P.4 mmHg Ao max P.5 mmHg LV V1 VTI: 14.0 cm Ao mean P.3 mmHg ASUNCION(I,D): 1.6 cm2 Ao V2 VTI: 29.9 cm ASUNCION(V,D): 1.7 cm2 sev ratio: 0.47 ASUNCION indexed to BSA (cm^2/m^2): 0.78 MV E max jesse: 75.3 cm/sec TR max jesse: 187.8 cm/sec MV A max jesse: 3.3 cm/sec TR max P.1 mmHg MV E/A: 23.0 PA V2 max: 70.1 cm/sec Med Peak E' Jesse: 8.2 cm/sec PA V2 mean: 48.7 cm/sec E/E' med: 9.2 PA mean P.1 mmHg Lat Peak E' Jesse: 10.6 cm/sec PA pr(Accel): 19.1 mmHg E/E' lat: 7.1 E/e' average: 8.1 MV dec time: 0.26 sec SV(LVOT): 48.9 ml Electronically signed by: Sangeetha Egan M.D. on Reading Physician:03/26/2021 12:43 PM
--- NOTE | 2021-03-25 16:11 | PM.HP.1 ---
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 Patient has been living at [facility] since his stroke in July 2019 which left him paralyzed on the left side. He states that since this morning he has had a persistent headache and felt weak which persisted for a number of hours. He was then found slumping while playing bingo. He was noted to have new right side weakness on initial exam by ER physician as well as known chronic left hemiparesis. He was also noted to have new left facial droop and apparently new dysarthria. Head CT showed likely chronic right MCA distribution stroke without acute findings. 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 Labs were unremarkable. He has otherwise felt fine without fever, chills, dyspnea, cough, chest pain or palpitations. Patient had significant improvement in neurological findings with improvement in right side weakness, speech and eye movements by the time he left the emergency department. SARs COVID 2 PCR negative. Meds will be updated but he is on atorvastatin, famotidine, hydralazine as needed, sertraline, amlodipine, losartan, carvedilol, levothyroxine, doxazosin, aspirin, apixaban. Social history: Lives at [facility]. Nonsmoker. Family history: Unknown Meds Home Medications and Allergies Home Medications Medication Instructions Recorded Confirmed Type amlodipine 5 mg tablet (Norvasc) 5 mg PO QDAY #0 03/14/16 History aspirin 81 mg tablet,delayed 81 mg PO QDAY #0 03/14/16 History release atorvastatin 80 mg tablet (Lipitor) 80 mg PO QDAY #0 03/14/16 History clopidogrel 75 mg tablet 75 mg PO QDAY #0 03/14/16 History hydrochlorothiazide 12.5 mg capsule 12.5 mg PO QDAY #0 03/14/16 History levothyroxine 100 mcg tablet 100 mcg PO QAM #0 12/13/16 History lisinopril 10 mg tablet 20 mg PO QDAY #0 03/14/16 History metoprolol succinate 25 mg 25 mg PO QDAY #0 03/14/16 History tablet,extended release 24 hr (Toprol XL) oxycodone-acetaminophen 5 mg-325 1 - 2 tab PO Q6HP PRN #25 tab 03/16/16 Rx mg tablet (Percocet) Allergies Allergy/AdvReac Type Severity Reaction Status Date / Time Macrolide Antibiotics Allergy Intermediate RASH Verified 03/25/21 12:14 [MACROLIDE ANTIBIOTICS] mercury (elemental) Allergy Mild RASH Verified 03/25/21 12:14 [MERCURY (ELEMENTAL)] erythromycin base Allergy Unknown RASH Verified 03/25/21 12:14 [ERYTHROMYCIN BASE] Review of Systems Review of Systems Narrative: Complete 10 point ROS is negative except as noted above. Exam Vital Signs (past 8 hours): - 03/25/21 12:00 03/25/21 13:02 03/25/21 13:15 Temperature 97.8 F Pulse Rate 86 67 62 Respiratory Rate 21 19 12 Blood Pressure 139/95 H 158/84 H Pulse Oximetry 96 97 97 03/25/21 13:30 03/25/21 13:45 03/25/21 14:00 Temperature Pulse Rate 69 67 71 Respiratory Rate 21 20 12 Blood Pressure 151/84 H 180/88 H Pulse Oximetry 98 96 97 03/25/21 14:01 03/25/21 14:30 03/25/21 14:45 Temperature Pulse Rate 66 71 79 Respiratory Rate 12 11 L 13 Blood Pressure 174/91 H 159/89 H 159/97 H Pulse Oximetry 96 98 03/25/21 15:00 Temperature Pulse Rate 68 Respiratory Rate 15 Blood Pressure Pulse Oximetry 99 Oxygen Delivery Method Room Air Narrative Exam Narrative: General: Alert mildly obese male in no acute distress HEENT: There is mild left facial droop, EOMI, visual mayo intact grossly Neck: No lymphadenopathy Lungs: Clear to auscultation Heart: Irregularly irregular without murmur Abdomen: Soft, peg tube noted in normal position, nontender, no HSM Extremities: No edema Neurological: Affect normal, well oriented, probably mild dysarthria but speech is very easily understandable, chronic dense left hemiparesis noted, at this time he has 5/5 strength and intact sensation in the right upper and lower extremities, finger to nose and heel to azar intact on the right Objective Labs Result Diagrams: 03/25/21 12:18 03/25/21 12:18 Labs: Laboratory Results - last 24 hr 03/25/21 03/25/21 03/25/21 12:18 12:18 12:18 WBC 6.0 RBC 4.80 Hgb 14.8 Hct 44.0 MCV 91.6 MCH 30.9 MCHC 33.7 RDW 14.0 Plt Count 208 Neut % (Auto) 75.7 H Lymph % (Auto) 14.0 L Randolph % (Auto) 7.3 Eos % (Auto) 2.5 Baso % (Auto) 0.5 Neut # (Auto) 4500 Lymph # (Auto) 800 L Randolph # (Auto) 400 Eos # (Auto) 200 Baso # (Auto) 0 PT 19.6 H INR 1.7 H APTT 41 H Sodium 140 Potassium 4.0 Chloride 105 Carbon Dioxide 30 BUN 22 H Creatinine 1.20 Estimated GFR 59.7 L BUN/Creatinine Ratio 18.3 Glucose 88 Calcium 9.2 Total Creatine Kinase < 20 L CK-MB (CK-2) TNP CK-MB (CK-2) Rel Index TNP Troponin I < 0.012 SARS-CoV-2 (PCR) 03/25/21 13:43 WBC RBC Hgb Hct MCV MCH MCHC RDW Plt Count Neut % (Auto) Lymph % (Auto) Randolph % (Auto) Eos % (Auto) Baso % (Auto) Neut # (Auto) Lymph # (Auto) Randolph # (Auto) Eos # (Auto) Baso # (Auto) PT INR APTT Sodium Potassium Chloride Carbon Dioxide BUN Creatinine Estimated GFR BUN/Creatinine Ratio Glucose Calcium Total Creatine Kinase CK-MB (CK-2) CK-MB (CK-2) Rel Index Troponin I SARS-CoV-2 (PCR) Negative Assessment & Plan Assessment & Plan narrative: 1. Acute TIA versus CVA -presented with new headache, weakness, left facial droop and found slumping with improvement in ED -has chronic left hemiparesis from prior CVA -etiology likely small vessel/ischemic, patient has AFib but on chronic anticoagulation -head CT chronic old right CVA, CTA with occluded right ICA and otherwise diffuse atherosclerotic disease -telemetry -echo -brain MR -IV fluids -regular diet if passes swallow screen -ST, PT and OT -patient is chronically wheelchair bound at long-term facility but states is normally able to assist with transfers 2. Chronic atrial fibrillation -rate controlled -continue apixaban 3. Chronic hypertension, controlled -continue routine meds amlodipine, losartan, carvedilol, doxazosin, he also has outpatient order for hydralazine as needed 4. Hypothyroidism -continue routine levothyroxine 5. Hyperlipidemia -check lipid panel -continue high-intensity atorvastatin Admit status: Observation Code status: Full code, has POLST Time Spent With Patient Critical Care time: I spent a total of [] minutes of critical care time on this patient's care today; this time is exclusive of procedural time.
[2021-03-25 16:21] LABS: Cholesterol 94 mg/dL (140-199); HDL Cholesterol 32 mg/dL (40-60); LDL Cholesterol Calculated 52 mg/dL (<100); Triglycerides 52 mg/dL (35-150)
--- NOTE | 2021-03-25 16:21 | PC.NURSE ---
Day shift: Off unit for MRI at approx 1620. Pt passed RN sae hernandez with this writer editor at approx 1600 today.
--- NOTE | 2021-03-25 16:57 | PC.NURSE ---
Day shift: Back in room from MRI. Tele placed as well at approx 1700.
[2021-03-25] MEDS: APIXABAN 5 MG TABLET PO (21:19)
[2021-03-25] MEDS: ATORVASTATIN 20 MG TABLET 40 MG PO (21:19)
[2021-03-25] MEDS: DOXAZOSIN 4 MG TABLET 6 MG PO (21:20)
[2021-03-25] MEDS: carvediloL 12.5 MG TABLET PO (21:21)
[2021-03-26] VITALS (20 sets, daily range): BP systolic 89–159; BP diastolic 54–93; PULSE 50–89; RESP 14–18; TEMP 35.9–36.6; O2SAT 92–100
[2021-03-26] MEDS: SODIUM CHLORIDE 0.9% 1,000 ML 150 ML IV (03:30)
[2021-03-26] MEDS: LEVOTHYROXINE 125 MCG TABLET PO (06:27)
[2021-03-26] MEDS: SERTRALINE 50 MG TABLET PO (09:36)
[2021-03-26] MEDS: carvediloL 12.5 MG TABLET PO (09:36)
[2021-03-26] MEDS: LOSARTAN 25 MG TABLET PO (09:36)
[2021-03-26] MEDS: FAMOTIDINE 20 MG TABLET PO (09:36)
[2021-03-26] MEDS: AMLODIPINE 5 MG TABLET PO (09:36)
[2021-03-26] MEDS: carvediloL 3.125 MG TABLET 6.25 MG PO (09:37)
[2021-03-26] MEDS: HYDRALAZINE 10 MG TABLET 20 MG PO (09:37)
[2021-03-26] MEDS: ASPIRIN EC 81 MG TABLET PO (09:37)
[2021-03-26] MEDS: APIXABAN 5 MG TABLET PO ×2 (09:37→20:49)
[2021-03-26] MEDS: SODIUM CHLORIDE 0.9% FLUSH 10 ML IV ×2 (09:38→21:57)
--- NOTE | 2021-03-26 11:45 | OT.IP.EVAL ---
Occupational Therapy Inpatient Evaluation/Re-Eval M1 PT/OT-IP Prior Functional Status Start: 03/26/21 11:44 Freq: NEEDED Status: Active Protocol: Document 03/26/21 11:45 [facility] (Rec: 03/26/21 12:09 [facility] [id number]) Medical Review Prior Functional Status Medical History Reviewed Yes Communication Independent Mobility and Gait Pt uses a wc at [facility] to get around by pushing the wc wheel with his right hand and using his right foot to help steer/guide the wc. Pt uses a transfer pole with one extensive person assist to help get to his wc and bed. Activities of Daily Living and IADL's Per [facility], pt able to eat after set-up otherwise needing extensive assist for all other needs. Social History Household Members none Living Arrangements Assisted Living M2 OT-IP Current Condition Start: 03/26/21 11:44 Freq: Status: Active Protocol: Document 03/26/21 11:45 [facility] (Rec: 03/26/21 12:09 [facility] [id number]) Occupational Therapy Current Condition Current Condition Evaluation Date 03/26/21 Treatment Diagnosis TIA Diagnosis Onset Date 03/25/21 M3 OT- IP Subjective and Pain Start: 03/26/21 11:44 Freq: Status: Active Protocol: Document 03/26/21 11:45 [facility] (Rec: 03/26/21 12:09 [facility] [id number]) OT- Subjective Occupational Therapy Visit Type Type Initial Evaluation Visit Start Time 10:40 Visit Stop Time 11:45 Total Visit Minutes 65 Occupational Therapy Visit Comments Patient Comments Pt agreed to get up for OT eval. PT also in at the edge of the session to help determine his mobility needs. Patient/Caregiver Goals To go back to [facility]. OT Pain Assessment Pain When Pain Assessed At Rest Pain Present Pain Present Denied Pain M4 OT- IP ADL's Start: 03/26/21 11:44 Freq: Status: Active Protocol: Document 03/26/21 11:45 [facility] (Rec: 03/26/21 12:09 [facility] [id number]) OT [id number] Comments OT Self-Feeding Comments NOt at meal time. Pt states medications are give through his peg tube, otherwise he is on a regular diet per pt. OT ADL-Grooming Comments OT Grooming Comments Pt not wanting to do. OT ADL-Oral Care Comments Oral Care Comments Pt refused. OT ADL-Dressing General Eval Upper Body Dressing Ability Maximum Assistance Lower Body Dressing Ability Total Assistance OT ADL-Toileting General Evaluation Toileting Ability Total Assistance Areas Needing Assistance Manage Clothing,Perform Perineal Hygiene Comments OT Toileting Comments Total assist for brief and hygiene needs while in bed. OT ADL-Bathing Bathing Type Bathing Type Sponge Bath Comments OT Bathing Comments Sponge bath completed while in bed. Pt states Ilda uses a rolling shower chair for showers. M6 OT- IP Functional Cognition Start: 03/26/21 11:44 Freq: Status: Active Protocol: Document 03/26/21 11:45 [facility] (Rec: 03/26/21 12:09 [facility] [id number]) Cognitive Factors Limiting Selfcare Function Cognitive Ability Level of Alertness Alert Patient Orientation Name,Place,Situation Attention Span Ability Capable of Focused Attention, Capable of Sustained Attention Ability to Follow Commands Able to Follow One Step Commands Cognitive Comments Cognitive Assessment Comments Pt able to follow commands appropriately for ADl and mobility needs. OT- Vision and Hearing OT- Hearing Assessment OT- Hearing Assessment WFL OT- Vision Assessment Visual Acuity WFL M7 OT- IP Mobility and Balance Start: 03/26/21 11:44 Freq: Status: Active Protocol: Document 03/26/21 11:45 [facility] (Rec: 03/26/21 12:09 [facility] [id number]) OT- Bed Mobility Assessment Rolling Type of Rolling Roll to Left Level of Assistance Contact Guard Assistance Supine to Sit Supine to Sit Assist Maximum Assistance,1 Person Assistance OT-Transfer Assessment Sit to and From Stand Sit to and from Stand Maximum Assistance,1 Person Assistance,2 Person Assistance Transfers Transfer Ability Maximum Assistance,1 Person Assistance Technique Transfer Destination Bed,Chair,Wheelchair Transfer Technique Stand Step Pivot Devices Transfer Assistive Devices None,Gait Belt Comments Mobility Comments Pt MAX A to help get from side lying to sitting upright. Pt able to stand with therapist MAXAX 1 and needing another person for safety to help get his hips over to the recliner. Pt uses a transfer pole at home to assist, however the hospital does not have one to use and therefore pt needing more assist for transfer. Able to place shoes on pt and transfer with PT was a bit smoother and able to stand better and transfer with MAXAx1 and MODA X 1 for safety. Pt able to mobilize in a manual wc once assisted to get there. Per pt feels at his baseline for mobility needs and agrees that use of the transfer pole versus therapist to hold to will be much easier to move and manage at home. OT- Gait Assessment Comments Gait Ability Comments Pt does not ambulate and use of manual wc to get around. OT- Balance Assessment Sitting Balance and Reactions Static Sitting Balance Ability Fair Dynamic Sitting Balance Ability Poor Standing Balance and Reactions Static Standing Balance Ability Poor Dynamic Standing Balance Ability Poor M8 OT- IP Objective Assessments Start: 03/26/21 11:44 Freq: Status: Active Protocol: Document 03/26/21 11:45 [facility] (Rec: 03/26/21 12:09 [facility] [id number]) OT Gross Range of Motion Upper Extremity Range of Motion Assessment Left Impaired OT Strength Upper Extremity Strength Assessment Left Impaired OT-Muscle Tone Assessment Muscle Tone WNL No Comments Muscle Tone Comments Hypertonicity LLE > LUE OT Sensation Assessment Comments Summary Comments INtact for light touch BUE. M9 OT- IP Assessment and Plan Start: 03/26/21 11:44 Freq: Status: Active Protocol: Document 03/26/21 11:45 [facility] (Rec: 03/26/21 12:09 [facility] [id number]) OT Summary Assessment and Plan Potential Rehabilitation Potential Good Analytic Complexity at Evaluation Low Summary OT Impairments Balance,Functional Mobility Progress Towards Goals Progressing Toward Goals Assessment Summary Pt here due to right sided weakness and probable TIA. Pt feels that he is back to baseline for needs. Pt lives at [facility] and staff states that he is able to eat after set-up otherwise needing extensive assist for all ADl needs. Pt has a transfer pole in which he transfers with one extensive assist to his wc or back to bed. Pt able to demonstrate ability to mobilize himself in a manual wc when assisted to get there and back from OT/PT. Pt looking to go back to [facility] when medically stable. Goals Days to Meet Goals 1 Frequency of Treatment Frequency Of Treatment Once a Day Treatment Plan OT Treatment Plan Functional Mobility Discharge Recommendations OT Discharge Recommendations Home with assist Available Transportation Needs at Discharge Wheelchair/Cabulance
--- NOTE | 2021-03-26 12:40 | DI.CT.S_ITS ---
PROCEDURE: CT HEAD/BRAIN WO CON INDICATIONS: acute LOC TECHNIQUE: Noncontrast 4.5 mm thick angled axial sections acquired from the foramen magnum to the vertex, with coronal and sagittal reformats. For radiation dose reduction, the following was used: automated exposure control, adjustment of mA and/or kV according to patient size. COMPARISON: None. FINDINGS: Image quality: Excellent. CSF spaces: Basal cisterns are patent. No extra-axial fluid collections. Ventricles are normal in size and shape. Brain: No midline shift. No intracranial mass or hemorrhage. There is a right frontal infarct with associated atrophy and encephalomalacia. Diffuse cortical atrophy is present. The intracranial vasculature has atherosclerotic calcifications. Diffuse volume loss is seen. Skull and face: Calvarium and visualized facial bones are intact, without suspicious lesions. Sinuses: Visualized sinuses and mastoids are clear. IMPRESSION: 1. Remote right frontal infarct with associated atrophy and encephalomalacia. 2. No acute intracranial abnormality. 3. Microvascular ischemic disease and volume loss. Dictated by: Chago Olson M.D. on 03/26/2021 at 12:36 Approved by: Chago Olson M.D. on 03/26/2021 at 12:41
--- NOTE | 2021-03-26 12:44 | CM.DANOTE ---
DCP Assessment: Patient is a 70 yr old male who was admitted for poss Stroke. CM met with patient at the bedside and explained role. patient was alert and oriented x3 at time of visit. Patient came here from [facility] facility and plans on returning there at [place]. CM called [facility] and LVM with them to see if they can accept the patient back at [place]. CM will follow up with [facility] tomorrow since admissions is not answering today due to the holiday. Patient had staff emergency today - had a syncopal episode and was found on the ground. patient now awake but is getting work up following syncopal episode. I: Medicaid and medicare Plan: DC back to [facility] when medically stable- CM needs to get a hold of [facility] to make sure they will accept the patient back at [place]. Jimena is not working today due to the holiday and cm will follow up tomorrow to make sure DC plan is appropriate. Margo victoria Discharge Planning/Care Management CM Discharge Assessment Start: 03/26/21 12:32 Freq: Status: Active Protocol: Document 03/26/21 12:32 [facility] (Rec: 03/26/21 12:43 [facility] [id number]) Discharge Planning Assessment Assigned Choirmaster Margo Ruster DPOA/Assigned Designee Name karina Lu- family/friend Contact Information [phone] Advance Directives? No History Provided By Patient,Medical Record Has Patient been admitted in last 30 No days? Prior Living Arrangements Assisted Living Comment Patient came from [facility] Household Members none Type of transporation used prior to Relies on Others admit Willing to Return to Facility? Yes: [facility] Independent with ADL's No Is patient alert and oriented? Yes Caregiver for Another No DME Already Rented / Owned Wheelchair Patient/Family Preference Jail Facility Comment plan is to DC back to [facility] when medically stable Barriers to Discharge No Discharge Plan Jail Facility Referrals Initiated None needed Whiteboard Updated in Patient Room with Yes name and ext. # of Choirmaster Review Status In Process Next Review Type Continued Stay Review
--- NOTE | 2021-03-26 12:46 | PC.NURSE ---
RN (Leonarda) and I helped the PT help the patient to the chair at 11:15. Patient was sleeping at lunch time, I put the lunch tray by the side of the chair and let the RN know that I would go in shortly to set it up for him once he woke up. Leonarda came to me at 12:30 and alerted me that the patient was laying on the floor (on his left side, smiling and sleeping). Patient was difficult to arouse, and showed no signs of redness on his head, knees, elbows. He did state that his shoulder hurt (left). 2 sets of vitals were taken, one on the floor and one in bed. We placed a sling under him and martha lifted him back into bed.
--- NOTE | 2021-03-26 12:48 | PC.NURSE ---
Day shift: Pt OOB w/ PT/OT and sitting in chair. Found on the floor in front of chair by this business writer at approx 1230. Rapid response called approx [address] Martinez in room to access as well at approx 1231. Pt lethargic and tired. BP 85/45 and then BP 105/55 when back in bed. Michelle lifted into the bed and he tolerated this well. Denies any pain. Head CT ordered by Dr Martinez and a 500ml bolus of IV fluid. New IV started in right upper arm by DAVID Nicolas. hazardous waste management specialist Sherri in room for this event as well. Pt is back in bed w/ no s/s of pain or discomfort. He is sleeping. Pt's HR at this time 54. Dr Martinez aware. SHAE Amaya at this event as well. Pt did not have a chair alarm in place. Pt also stated that he was trying to get up out of the chair. Call light was in reach and door to room was open.
--- NOTE | 2021-03-26 12:50 | PT.IIE ---
Physical Therapy Inpatient Evaluation/Re-Eval M1 PT/OT-IP Prior Functional Status Start: 03/26/21 11:44 Freq: NEEDED Status: Active Protocol: Document 03/26/21 12:38 [facility] (Rec: 03/26/21 12:49 [facility] [id number]) Medical Review Prior Functional Status Medical History Reviewed Yes Communication Independent Mobility and Gait Pt uses a wc at [facility] to get around by pushing the wc wheel with his right hand and using his right foot to help steer/guide the wc. Pt uses a transfer pole with one extensive person assist to help get to his wc and bed. Activities of Daily Living and IADL's Per [facility], pt able to eat after set-up otherwsie needing extensive assist for all other needs. Social History Household Members none Living Arrangements Assisted Living M2 PT-IP Current Condition Start: 03/26/21 12:37 Freq: NEEDED Status: Active Protocol: Document 03/26/21 12:38 [facility] (Rec: 03/26/21 12:49 [facility] [id number]) Physical Therapy Current Condition Current Condition Evaluation Date 03/26/21 Treatment Diagnosis TIA M3 PT-IP Subjective Start: 03/26/21 12:37 Freq: NEEDED Status: Active Protocol: Document 03/26/21 12:38 [facility] (Rec: 03/26/21 12:49 [facility] [id number]) Subjective Physical Therapy Visit Type Type Initial Evaluation Visit Start Time 11:20 Visit Stop Time 11:45 Total Visit Minutes 25 Number of FIRE SUPPORT MAN Visits 0 Physical Therapy Visit Comments Patient Comments Pt feels like he is close to his normal mobility M4 PT-IP Mobility and Gait Start: 03/26/21 12:37 Freq: NEEDED Status: Active Protocol: Document 03/26/21 12:38 [facility] (Rec: 03/26/21 12:49 [facility] [id number]) PT-Transfer Assessment Sit to and From Stand Sit to and from Stand Maximum Assistance,1 Person Assistance,2 Person Assistance ,Use of Upper Extremities Equipment Transfer Assistive Device Gait Belt Orthotic/Prosthetic Devices or Brace: No Transfers Transfer Destination Chair Transfer Technique Squat Pivot Transfer Ability Level of Assist Maximum Assistance,1 Person Assistance,2 Person Assistance Comments Mobility Comments pt seated in chair upon PT arrival. He was able to scoot fwd in his chair indep and did transfer to recliner to WC w/ pt holding PT and max A by PT and mod to max A by OT behind as pt's foot slipped out from under him and fwd some during transfer. Pt typically uses shoes so shoes were placed on pt and he was able to do transfer backt o recliner w/ max A x1 PT and mod A by OT for safety w/pt holding PT. Hospital does not have transfer pole and if pt had solid transfer pole to hold, pt would likely be able to do max A x1 transfer w/pole as he would at home. He did help a lot w/PT and was able to press through RLE and pull on PT some w/UE but not as much as he would w/pole.P t required assist to scoot back in chair and was left in recliner w/ call light in reach> When in WC, pt did demo he could sequence fwd w/use of RLE on floor and RUE on wheel. PT-Balance Assessment Sitting Balance and Reactions Static Sitting Balance Ability Fair Dynamic Sitting Balance Ability Poor Standing Balance and Reactions Static Standing Balance Ability Poor Dynamic Standing Balance Ability Poor M5 PT-IP Objective Assessments Start: 03/26/21 12:37 Freq: NEEDED Status: Active Protocol: Document 03/26/21 12:38 [facility] (Rec: 03/26/21 12:49 [facility] [id number]) Orientation Orientation/Cognition Level of Alertness Alert Language Function Ability No Deficits Noted Strength Lower Extremity Strength Hip L: 1/5 hip flex, add/abd seated test 2/5, R 4-/5 Knee L : 1/5, R 4-/5 Ankle L:0/5; R4-/5 M6 PT-IP Treatment Start: 03/26/21 12:37 Freq: NEEDED Status: Active Protocol: Document 03/26/21 12:38 [facility] (Rec: 03/26/21 12:49 [facility] [id number]) Physical Therapy Treatment Education Education Provided Safety M7 PT-IP Assessment and Plan Start: 03/26/21 12:37 Freq: NEEDED Status: Active Protocol: Document 03/26/21 12:38 [facility] (Rec: 03/26/21 12:49 [facility] [id number]) PT Summary Assessment and Plan Potential Rehabilitation Potential Fair Status of Condition at Evaluation Evolving Summary Impairments Strength,Balance,Tone,Bed Mobility,Transfers,Gait, Activity Tolerance Assessment Summary Pt presents after liekly TIA w /history of prior strokes w/ chornic L hemiparesis. He participates well in his transfers and has very limited mobility of his LLE and UE but does have good use of RLE and UE which helps him to be able to assist w/his transfers . He requried 2 person assist in hospital today but likely d /t not having transfer bar available to him as he does at SNF that he lives at. he would beneift from PT 1x/day to [facility] to work on strength and transfers for return home. Goals Bed Mobility Goal Maximal Assistance Transfer Goal Maximal Assistance Days to Meet Goals 3 Frequency of Treatment Frequency Of Treatment Once a Day Treatment Plan Physical Therapy Treatment Plan Bed Mobility Training,Transfer Training,Therapeutic Exercise Recommendations To Nursing Amount of Assist Needed Mechanical Lift Discharge Recommendations PT Discharge Recommendations Home with Assistance,Home Health Other Discharge Recommendations pt may benefit from therapy to work on his mobility Transportation Needs at Discharge Wheelchair/Cabulance
[2021-03-26] MEDS: SODIUM CHLORIDE 0.9% 500 ML IV (13:09)
--- NOTE | 2021-03-26 13:19 | PC.NURSE ---
Day shift: Pt off unit for CT at approx 1310.
--- NOTE | 2021-03-26 14:10 | P.PN_ITS ---
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 Admitted for rule out CVA. Patient was found down and unresponsive in his hospital room around 12:30 today. He was apparently sitting in the hospital chair and must have slid down to the floor. Unknown if he hit his head. He is at baseline wheelchair-bound. Vitals taken immediately showed he was hypotensive with BP 89/60 and bradycardic with rate in the 40s. On telemetry review he has been bradycardic most of the morning in the 30s to 40s in atrial fibrillation rhythm. Patient remains somnolent and poorly responsive and was put back in bed. Stat head CT showed no acute findings. Exam Vital Signs (past 8 hours): - 03/26/21 07:30 03/26/21 09:36 03/26/21 09:37 Temperature 96.7 F L Pulse Rate 82 82 82 Respiratory Rate 15 Blood Pressure 159/88 H 159/88 H 159/88 H Pulse Oximetry 96 03/26/21 09:57 03/26/21 10:44 03/26/21 11:00 Temperature 97.8 F Pulse Rate 64 74 Respiratory Rate 16 Blood Pressure 98/55 L 111/78 Pulse Oximetry 96 99 03/26/21 11:54 03/26/21 12:30 03/26/21 12:40 Temperature Pulse Rate 50 L Respiratory Rate 14 Blood Pressure 89/60 L 104/54 L Pulse Oximetry 100 98 03/26/21 12:42 03/26/21 12:59 Temperature Pulse Rate Respiratory Rate Blood Pressure Pulse Oximetry 98 99 Oxygen Delivery Method Room Air Oxygen Flow Rate 0 Narrative Exam Narrative: Patient examined after unwitnessed fall in room. General: Somnolent and not following commands Breathing nonlabored Moving right side spontaneously Objective Labs Result Diagrams: 03/25/21 12:18 03/25/21 12:18 Labs: Laboratory Results - last 24 hr 03/25/21 03/25/21 12:27 13:43 Triglycerides 52 Cholesterol 94 L LDL Cholesterol, Calc 52 HDL Cholesterol 32 L SARS-CoV-2 (PCR) Negative [facility] Social History household members: none Assessment & Plan Assessment & Plan narrative: 1. Acute syncope, present on admission, active -recurrent syncope on hospital day 2 associated with bradycardia and hypotension (see management of AFib and hypertension) -presented with new headache, weakness, left facial droop and found slumping with improvement in ED -has chronic left hemiparesis from prior CVA -no evidence of new CVA -telemetry: Atrial fibrillation, persistent bradycardia likely symptomatic noted a.m. 03/26 with ventricular rate in the 30s to 40s -brain MRI remote infarct with encephalomalacia and old hemorrhage in right frontal lobe -head CT chronic old right CVA, CTA with occluded right ICA and otherwise diffuse atherosclerotic disease -repeat head CT 03/26 no new findings -echo: Normal LV size and function, EF 60-65%, severe LAD, aortic sclerosis without stenosis -ST, PT and OT -patient is chronically wheelchair bound at long-term facility but stated is normally able to assist with transfers 2.? Chronic atrial fibrillation with bradycardia secondary to sick sinus or beta-celeste therapy -patient with likely symptomatic bradycardia causing syncope -at home he is on Coreg 12.5 mg b.i.d. with additional Coreg 6.25 mg q.a.m. -stop carvedilol, monitor telemetry and restart at lower dose if indicated -patient also on a topical timolol paste which apparently is applied to his big toe for chronic paronychia and may be contributing to bradycardia and should probably be discontinued -continue apixaban and aspirin 81 mg q.d. per home routine 3.? Chronic hypertension, complicated by acute hypotension -hypotensive episode in-hospital with BP 89/60 associated with syncope and bradycardia -as above, stopped carvedilol but may need to restart at lower dose -stopped hydralazine he gets 20 mg q.a.m. -continued routine meds amlodipine 5 mg q.d., losartan 25 mg q.d. doxazosin 6 mg HS per home routine, hold these meds if indicated 4. Hypothyroidism -continue routine levothyroxine -check TSH 5.? Hyperlipidemia -LDL 52 on statin therapy -continue atorvastatin 40 mg HS Admit status:? Changed to inpatient on 03/26 Code status:? Full code, has POLST Disposition: Discharge back to [facility] when medically stable Time Spent With Patient Critical Care time: I spent a total of [] minutes of critical care time on this patient's care today; this time is exclusive of procedural time. Quality VTE Deep Vein Thrombosis/Pulmonary Embolism Present on Admission: No
[2021-03-26] MEDS: SODIUM CHLORIDE 0.9% 1,000 ML 60 ML IV (14:54)
[2021-03-26 15:48] LABS: TSH w/ Reflex to FT4 3.58 uIU/mL (0.47-4.68)
--- NOTE | 2021-03-26 17:38 | PC.NURSE ---
Day shift: Pt had some difficulty eating his dinner time salad at approx 1730. Salad removed from Pt. Pt also encouraged to take his time, eat slowly, and chew food thoroughly. O2 97% RA. Cough went away after approx [address] Martinez informed and diet order changed and ST ordered for Pt. Pt is having no difficulties with his grilled cheese sandwich at this time.
[2021-03-26] MEDS: ATORVASTATIN 20 MG TABLET 40 MG PO (20:49)
[2021-03-26] MEDS: DOXAZOSIN 4 MG TABLET 6 MG PO (20:49)
[2021-03-27] VITALS (11 sets, daily range): BP systolic 110–145; BP diastolic 65–91; PULSE 70–81; RESP 15–18; TEMP 36.3–37.1; O2SAT 94–98
[2021-03-27] MEDS: LEVOTHYROXINE 125 MCG TABLET PO (06:02)
[2021-03-27] MEDS: APIXABAN 5 MG TABLET PO (08:06)
[2021-03-27] MEDS: FAMOTIDINE 20 MG TABLET PO (08:06)
[2021-03-27] MEDS: SERTRALINE 50 MG TABLET PO (08:06)
[2021-03-27] MEDS: ASPIRIN EC 81 MG TABLET PO (08:07)
[2021-03-27] MEDS: LOSARTAN 25 MG TABLET PO (08:07)
[2021-03-27] MEDS: AMLODIPINE 5 MG TABLET PO (08:07)
--- NOTE | 2021-03-27 11:22 | PT-IP ANOTE ---
Pt will be discharging today and will mobilize at that time.
--- NOTE | 2021-03-27 12:50 | CM.DPC ---
DC plan continued: CM spoke with Lenny at [facility] who can accept patient back today. Dr. Lino put in DC orders and CM asked nursing to get rapid covid swab. which is pending results. RENEE will fax over DC medications, rapid covid results and DC order to lenny at [phone]. Nurse to nurse report number is [phone] RENEE gave the number to patients nurse. 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 Margo Cohen RNcost accountant.
[2021-03-27 12:55] LABS: COVID19 -Nasal RAPID Negative (Negative)
--- NOTE | 2021-03-27 14:36 | P.DS_ITS ---
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 Patient has been living at [facility] since his stroke in July 2019 which left him paralyzed on the left side.? He states that since this morning he has had a persistent headache and felt weak which persisted for a number of hours.? He was then found slumping while playing bingo.? He was noted to have new right side weakness on initial exam by ER physician as well as known chronic left hemiparesis.? He was also noted to have new left facial droop and apparently new dysarthria.? Head CT showed likely chronic right MCA distribution stroke without acute findings.? 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 Labs were unremarkable.? He has otherwise felt fine without fever, chills, dyspnea, cough, chest pain or palpitations.? Patient had significant improvement in neurological findings with improvement in right side weakness, speech and eye movements by the time he left the emergency department.? SARs COVID 2 PCR negative. Discharge Providers Provider Date of admission: 03/26/21 14:03 Discharge Date: 03/27/21 Primary care physician: Juan Chilel MD Consults: 03/25/21 16:33 Consult to Speech Therapy Evaluate & Treat Comment: Physician Instructions: Evaluate and treat 03/25/21 16:34 Consult to Occupational Therapy Evaluate & Treat Comment: Physician Instructions: Evaluate and treat Consult to Physical Therapy Evaluate & Treat Comment: Physician Instructions: Evaluate and Treat 03/26/21 17:37 Consult to Speech Therapy Evaluate & Treat Comment: sae hernandez Physician Instructions: Evaluate and treat Discharge provider: Yan Payan MD Summary Hospital Course Discharge Diagnosis: 1. Acute syncope 2. Chronic atrial fibrillation with bradycardia 3. Chronic hypertension complicated by acute hypotension 4. Hypothyroidism 5. Hyperlipidemia 6. H/o CVA, wheelchair bound, with EPG and chronic hemiparesis Hospital Course: Mr. Vences came to the hospital with headache, weakness, left facial droop, found slumped. He had a workup for stroke which showed old infarct in right frontal lobe, but no new stroke. While in the hospital he did have an episode of syncope and bradycardia. He had his coreg stopped. His timolol was held and should consider stopping this medication completely as well. His hydralazine was stopped. His blood pressure and heart rate improved and he had no further bradycardia, hypotension, or syncope. He may need to have further adjustments of his medications. Can consider if has continued issues with heart rate control referral to cardiology, but here in the hospital remained rate controlled and he was able to be discharged back to his facility. Exam Vital Signs (past 8 hours): - 03/27/21 06:40 03/27/21 07:37 03/27/21 08:02 Temperature 98.7 F Pulse Rate 81 Respiratory Rate 15 Blood Pressure 144/91 H Pulse Oximetry 95 98 95 03/27/21 08:07 03/27/21 09:55 03/27/21 11:05 Temperature 98.0 F Pulse Rate 81 71 Respiratory Rate 15 Blood Pressure 145/91 H 110/65 Pulse Oximetry 95 94 03/27/21 11:56 03/27/21 13:26 Temperature Pulse Rate Respiratory Rate Blood Pressure Pulse Oximetry 98 97 Oxygen Delivery Method Room Air Oxygen Flow Rate 0 Narrative Exam Narrative: General:? awake, alert, following commands Breathing nonlabored Cardiovascular regular rate and rhythm with no murmurs Pulmonary clear bilaterally Moving right side Objective Labs Result Diagrams: 03/25/21 12:18 03/25/21 12:18 Labs: Laboratory Results - last 24 hr 03/25/21 03/27/21 12:18 12:31 TSH 3.58 SARS-CoV-2 (PCR) Negative [facility] Social History household members: none Discharge Plan Discharge Plan Transfer to: [facility] Provider Discharge Comment: Mr. Vences came in to the hospital because he had weakness and was less responsive. He had a workup for a stroke which was negative. He did have an episode where his blood pressure and heart rate were low. Because of this his medications were adjusted and he did well afterwards. Both his carvedilol and his hydralazine were stopped. He should have his blood pressure monitored to continue to make sure his medications are appropriate. Discharge orders & Medications Discharge Orders: Discharge (Order); Ordered 12/26/21 Ordered By: Yan Payan Prescriptions: Continued amlodipine [Norvasc] 5 MG tablet 5 mg PO QDAY Qty: 0 0RF aspirin 81 MG tablet,delayed release (DR/EC) 81 mg PO QDAY Qty: 0 0RF doxazosin 2 mg tablet 6 mg PO BEDTIME 0RF losartan 25 mg tablet 25 mg PO DAILY 0RF sertraline 50 mg tablet 50 mg PO DAILY 0RF Eliquis 5 mg tablet 5 mg PO BID 0RF atorvastatin 40 mg tablet 40 mg PO BEDTIME 0RF levothyroxine 125 mcg tablet 125 mcg PO DAILY 0RF famotidine 40 mg 40 mg PO DAILY 0RF timolol maleate 0.5 % gel forming solution See Rx Instructions .ROUTE .COMPLEX 0RF Rx Instructions: apply to left big toe after clobetasol for paronychia Discontinued carvedilol 12.5 mg tablet 12.5 mg PO BID 0RF hydralazine 10 mg tablet 20 mg PO DAILY 0RF Rx Instructions: hold for BP < 110/50 Follow up/Referrals: Juan Chilel MD [Primary Care Provider] - Diet/Activity/Treatments Diet: Diet as Tolerated Discharge Data Primary Care Provider: Juan Chilel Quality VTE Deep Vein Thrombosis/Pulmonary Embolism Present on Admission: No
--- NOTE | 2021-03-27 14:54 | PC.NURSE ---
Day shift: Pt has a very large BM just prior to d/c. He was cleaned and new brief in place. Michelle lifted into WC and he tolerated that well. Left unit via WC at approx 1500 w/ transport person. Pt is going back to SNF. Has all personal belonings he was admitted with. Transport person has SNF packet.
== END 2021-03-27 14:56 | DRG 315 ==
LOC: ED 14:30 → AC 14:50
PROVIDERS: Internal Medicine; Admitting Provider Internal Medicine; Emergency Provider Emergency Medicine; PCP Internal Medicine; Referring Provider Emergency Medicine; Visit Provider Internal Medicine
DX: I95.9 Hypotension, unspecified (principal); I69.954 Hemiplegia and hemiparesis following unspecified cerebrovascular disease affecting left non-dominant side; I48.20 Chronic atrial fibrillation, unspecified; R00.1 Bradycardia, unspecified; R29.810 Facial weakness; R40.0 Somnolence; I10 Essential (primary) hypertension; R47.1 Dysarthria and anarthria; E03.9 Hypothyroidism, unspecified; E78.5 Hyperlipidemia, unspecified; Z20.822 Contact with and (suspected) exposure to COVID-19; Z99.3 Dependence on wheelchair; Z79.01 Long term (current) use of anticoagulants
CPT/HCPCS: 36415; 70450; 70496; 70498; 70551; 80048; 80061; 82550; 82962; 84443; 84484; 85025; 85610; 85730; 87635; 93005; 93306; 94760; 96361; 96374; 97162; 97165; 97530; 99285; C9803; G0378; A9270; Q9967

== ENCOUNTER 2021-04-18 14:38 | Emergency (ER) | payer MEDICARE, MEDICAID, SELFPAY ==
[2021-03-25 16:40] VITALS: BMI 28.8
[2021-04-18 14:35] VITALS: BP 181/108; PULSE 80; RESP 18; TEMP 36.7; O2SAT 99
--- NOTE | 2021-04-18 14:46 | DI.CT.S_ITS ---
PROCEDURE: CT HEAD/BRAIN WO CON INDICATIONS: fall, hit head on eliquis, prior CVA TECHNIQUE: Noncontrast 4.5 mm thick angled axial sections acquired from the foramen magnum to the vertex, with coronal and sagittal reformats. For radiation dose reduction, the following was used: automated exposure control, adjustment of mA and/or kV according to patient size. COMPARISON: [facility], MR, MR HEAD/BRAIN WO CON, 03/25/2021, 16:28. [facility], CT, CT ANGIO HEAD AND NECK, 03/25/2021, 12:09. [facility], CT, CT STROKE, 03/25/2021, 12:06. [facility], CT, CT CERVICAL SPINE WO CON, 04/18/2021, 14:49. [facility], CT, CT HEAD/BRAIN WO CON, 03/26/2021, 13:18. FINDINGS: Image quality: Excellent. CSF spaces: Basal cisterns are patent. No extra-axial fluid collections. The ventricles are symmetric in size and shape. Brain: No intracranial bleeds or masses. There is cerebral volume loss for age, with resultant ventricular and sulcal prominence. There are periventricular and deep white matter chronic small vessel ischemic changes. A remote right frontal lobe infarct is again seen. There is intracranial internal carotid artery atherosclerosis. Skull and face: Calvarium and visualized facial bones appear intact, without suspicious lesions. Sinuses: Visualized sinuses and mastoids are clear. IMPRESSION: No acute intracranial hemorrhage is seen. No acute intracranial process is seen. Remote right frontal lobe infarct again seen. Dictated by: Daniel Galvan M.D. on 04/18/2021 at 14:06 Approved by: Daniel Galvan M.D. on 04/18/2021 at 14:07
--- NOTE | 2021-04-18 14:46 | DI.CT.S_ITS ---
PROCEDURE: CT CERVICAL SPINE WO CON INDICATIONS: fall, hit head on eliquis, prior CVA TECHNIQUE: Noncontrast 3 mm thick sections acquired from the skull base to the T4 level. Sagittal and coronal reformats were then constructed. For radiation dose reduction, the following was used: automated exposure control, adjustment of mA and/or kV according to patient size. COMPARISON: [facility], CT, CT HEAD/BRAIN WO CON, 04/18/2021, 14:49. FINDINGS: Image quality: This examination is somewhat limited by quantum mottle artifact. Bones: No fractures or dislocations. Visualized superior ribs are intact. At least moderate loss of disc height can be seen at C5-C6 and C6-C7. Endplate irregularity and sclerosis are seen. Post erected endplate osteophytes are seen at these levels. Milder degenerative changes are seen elsewhere. Soft tissues: Prevertebral soft tissues are normal in thickness. No paravertebral hematomas. No apical pneumothoraces. Atherosclerotic calcification is noted. IMPRESSION: No acute fracture is seen. Cervical spine degenerative changes are seen, which are worst at C5-C6 and C6-C7. Dictated by: Daniel Galvan M.D. on 04/18/2021 at 14:08 Approved by: Daniel Galvan M.D. on 04/18/2021 at 14:09
--- NOTE | 2021-04-18 14:46 | DI.RAD.S_ITS ---
PROCEDURE: XR CHEST 1V INDICATIONS: fall, hit head on eliquis, prior CVA TECHNIQUE: One view of the chest was acquired. COMPARISON: [facility], CR, XR CHEST 1VW (PORTABLE), 03/31/2015, 5:18. FINDINGS: Surgical changes and devices: None. Lungs and pleura: Lungs are clear. No pleural effusions or pneumothorax. Mediastinum: Mediastinal contours appear normal. Heart size is mildly increased. There is a density calcified radiodensity projecting to the mediastinum right of the midline below the right bronchus. Bones and chest wall: No suspicious bony lesions. Overlying soft tissues appear unremarkable. IMPRESSION: 1. Mild cardiomegaly. 2. A density calcified radiodensity projecting to the mediastinum, probably a large calcified lymph node. Dictated by: Swetha Carl M.D. on 04/18/2021 at 15:23 Approved by: Swetha Carl M.D. on 04/18/2021 at 15:26
--- NOTE | 2021-04-18 14:47 | ED_ITS ---
HPI - Fall General Chief Complaint: Trauma Stated Complaint: Fall Time Seen by Provider: 04/18/21 14:42 Source: EMS and other Mode of arrival: EMS Limitations: no limitations History of Present Illness HPI Narrative: This is a 70-year-old male who comes emergency department with a witnessed ground level fall. Patient states he did hit his head he has left-sided deficits from prior stroke. He is on Eliquis. Patient was chatting with EMS but states he told them on his way here that he was done talking. Patient does answer questions for me. Patient denies any pain currently other than where EMS poked him in the arm.Patient denies any shortness of breath. No nausea or vomiting. He does not appreciate new weakness from his normal. Related Data Home Medications Medication Instructions Recorded Confirmed amlodipine 5 mg tablet (Norvasc) 5 mg PO QDAY #0 03/14/16 03/25/21 aspirin 81 mg tablet,delayed 81 mg PO QDAY #0 03/14/16 03/25/21 release apixaban 5 mg tablet (Eliquis) 5 mg PO BID 03/25/21 03/25/21 atorvastatin 40 mg tablet 40 mg PO BEDTIME 03/25/21 03/25/21 doxazosin 2 mg tablet 6 mg PO BEDTIME 03/25/21 03/25/21 famotidine 40 mg PO DAILY 03/25/21 03/25/21 levothyroxine 125 mcg tablet 125 mcg PO DAILY 03/25/21 03/25/21 losartan 25 mg tablet 25 mg PO DAILY 03/25/21 03/25/21 sertraline 50 mg tablet 50 mg PO DAILY 03/25/21 03/25/21 timolol maleate 0.5 % eye gel See Rx Instructions .ROUTE .COMPLEX 03/26/21 03/26/21 forming solution Allergies Allergy/AdvReac Type Severity Reaction Status Date / Time Macrolide Antibiotics Allergy Intermediate RASH Verified 03/25/21 12:14 [MACROLIDE ANTIBIOTICS] mercury (elemental) Allergy Mild RASH Verified 03/25/21 12:14 [MERCURY (ELEMENTAL)] erythromycin base Allergy Unknown RASH Verified 03/25/21 12:14 [ERYTHROMYCIN BASE] Review of Systems Review of Systems ROS Unobtainable: All systems reviewed & are unremarkable except as noted in HPI and below Patient History Social History household members: none Smoking Status: Unknown if ever smoked Smoking Status: Unknown if ever smoked Substance Use Type: does not use Exam Narrative Exam Narrative: GEN: Patient appears in mild distress. HEAD: No evidence of trauma, no raccoon/Garg sign. NECK: Nontender, painless range of motion, trachea midline Negative Nexus criteria, there is no midline line tenderness, distracting injury, altered mental status, neuro deficit, recent EtOH. EYES: PERRLA, EOMI ENT: External inspection normal, trachea is midline, TM's are normal no hemotypanum, Nares are clear, no septal hematoma, no dental or oral injury, airway is normal and with normal occlusion, No bony tenderness RESP: Chest is nontender and has symmetric movement, no ecchymosis, breath sounds are normal no crackles, wheezes or rales CVS: Heart sounds are normal, no murmur noted, No JVD. ABG/GI: Nontender, soft, normal bowel sounds, no distention, no organomegaly, pelvic rock is negative NEURO: Oriented AOx3, neuro is grossly intact, sensation and motor is normal all 4 extremities moving, cranial nerves II through XII are intact, GCS is 15 PSYCH: Normal mood and affect SKIN: Intact, warm and dry, no crepitus and without decubitus BACK: No CVA tenderness, no vertebral tenderness, no step-off's, no crepitus EXT: Atraumatic, hips are nontender, no pedal edema, normal color and temperature, patient has contracture of the left upper extremity. No movement of the left lower extremity. Initial Vital Signs Initial Vital Signs: Vital Signs Temperature 98.1 F 04/18/21 14:35 Pulse Rate 80 04/18/21 14:35 Respiratory Rate 18 04/18/21 14:35 Blood Pressure 181/108 H 04/18/21 14:35 Pulse Oximetry 99 04/18/21 14:35 Course Orders Ordered: ED Orders 04/18/21 14:46 CT cervical spine wo con Stat CT head/brain wo con Stat Chest [XR chest 1V] Stat 04/18/21 14:49 CBC Auto Diff [Complete Blood Count AUTO DIFF] Stat CMP [Comprehensive Metabolic Panel] Stat PTT [Partial Thromboplastin Time] Stat Prothrombin Time INR Stat Vital Signs Vital signs: Vital Signs - 8 hr 04/18/21 14:35 04/18/21 15:58 04/18/21 16:36 Temperature 98.1 F Pulse Rate 80 61 63 Respiratory Rate 18 17 18 Blood Pressure 181/108 H 147/97 H 178/100 H Pulse Oximetry 99 98 94 MDM - Fall Lab Data Result diagrams: 04/18/21 14:49 04/18/21 14:49 Labs: Lab Results 04/18/21 04/18/21 04/18/21 Range/Units 14:49 14:49 14:49 WBC 5.7 (4.5-11.0) X10^3/uL RBC 5.06 (4.5-5.9) X10^6/uL Hgb 15.6 (13.5-17.5) g/dL Hct 46.4 (41-53) % MCV 91.6 (80-100) fL MCH 30.8 (26-34) PG MCHC 33.6 (30-36) % RDW 14.4 (11.6-14.8) % Plt Count 182 (150-400) X10^3/uL Neut % (Auto) 69.0 (50-75) % Lymph % (Auto) 19.3 L (25-40) % Barren % (Auto) 8.5 (3-14) % Eos % (Auto) 2.6 (2-4) % Baso % (Auto) 0.6 (0-2) % Neut # (Auto) 3900 (4125-9461) /uL Lymph # (Auto) 1100 (5301-6784) /uL Barren # (Auto) 500 (0-900) /uL Eos # (Auto) 200 (0-450) /uL Baso # (Auto) 0 (0-100) /uL PT 14.9 H (10.1-12.7) SECONDS INR 1.3 (0.9-1.3) APTT 37 H (26.4-36.2) SECONDS Sodium 142 (137-145) mmol/L Potassium 3.7 (3.4-5.1) mmol/L Chloride 105 (98-107) mmol/L Carbon Dioxide 32 (22-32) mmol/L BUN 25 H (9-20) mg/dL Creatinine 1.36 H (0.66-1.25) mg/dL Estimated GFR 51.7 L (>60) mL/min BUN/Creatinine Ratio 18.4 (6-22) Glucose 81 (80-110) mg/dL Calcium 9.5 (8.4-10.2) mg/dL Total Bilirubin 0.6 (0.2-1.3) mg/dL AST 25 (17-59) IU/L ALT 20 (<50) IU/L Alkaline Phosphatase 67 (38-126) U/L Total Protein 7.0 (6.3-8.2) g/dL Albumin 3.8 (3.5-5.0) g/dL Globulin 3.2 (1.7-4.1) g/dL Albumin/Globulin Ratio 1.2 (1.0-2.8) Imaging Data CT scan - head: Radiologist's Impression: [address] [address] [address] Scan Report Signed Patient: Chandu Vences MR#: [id number] : 1950 Acct:[id number] Age/Sex: 70 / M Date of Service: 04/18/21 Loc: ED Accession Number: [id number] ?? Procedure: CT head/brain wo con Ordering Provider: Leeanne Vega D.O. PROCEDURE:? CT HEAD/BRAIN WO CON ? INDICATIONS:? fall, hit head on eliquis, prior CVA ? TECHNIQUE:? Noncontrast 4.5 mm thick angled axial sections acquired from the foramen magnum to the vertex, with coronal and sagittal reformats.? For radiation dose reduction, the following was used:? automated exposure control, adjustment of mA and/or kV according to patient size.? ? COMPARISON:? [facility], MR, MR HEAD/BRAIN WO CON, 03/25/2021, 16:28.? [facility], CT, CT ANGIO HEAD AND NECK, 03/25/2021, 12:09.? [facility], CT, CT STROKE, 03/25/2021, 12:06.? [facility], CT, CT CERVICAL SPINE WO CON, 04/18/2021, 14:49.? [facility], CT, CT HEAD/BRAIN WO CON, 03/26/2021, 13:18. ? FINDINGS:? Image quality:? Excellent.? ? CSF spaces:? Basal cisterns are patent.? No extra-axial fluid collections.? The ventricles are symmetric in size and shape.? ? Brain:? No intracranial bleeds or masses.? There is cerebral volume loss for age, with resultant ventricular and sulcal prominence.? There are periventricular and deep white matter chronic small vessel ischemic changes.? A remote right frontal lobe infarct is again seen.? There is intracranial internal carotid artery atherosclerosis.? ? Skull and face:? Calvarium and visualized facial bones appear intact, without suspicious lesions.? ? Sinuses:? Visualized sinuses and mastoids are clear.? ? IMPRESSION:? No acute intracranial hemorrhage is seen.? ? No acute intracranial process is seen.? ? Remote right frontal lobe infarct again seen. ? ? Dictated by: Daniel Galvan M.D. on 04/18/2021 at 14:06 ? ? Approved by: Daniel Galvan M.D. on 04/18/2021 at 14:07?? CT - cervical spine: Radiologist's Impression: [place] [address] CT Scan Report Signed Patient: Chandu Vences MR#: [id number] : 1950 Acct:[id number] Age/Sex: 70 / M Date of Service: 04/18/21 Loc: ED Accession Number: [id number] ?? Procedure: CT cervical spine wo con Ordering Provider: Leeanne Vgea D.O. PROCEDURE:? CT CERVICAL SPINE WO CON ? INDICATIONS:? fall, hit head on eliquis, prior CVA ? TECHNIQUE:? Noncontrast 3 mm thick sections acquired from the skull base to the T4 level.? Sagittal and coronal reformats were then constructed.? For radiation dose reduction, the following was used:? automated exposure control, adjustment of mA and/or kV according to patient size.? ? COMPARISON:? [facility], CT, CT HEAD/BRAIN WO CON, 04/18/2021, 14:49. ? FINDINGS:? Image quality:? This examination is somewhat limited by quantum mottle artifact.? ? Bones:? No fractures or dislocations.? Visualized superior ribs are intact.? ? At least moderate loss of disc height can be seen at C5-C6 and C6-C7.? Endplate irregularity and sclerosis are seen.? Post erected endplate osteophytes are seen at these levels.? Milder degenerative changes are seen elsewhere.? ? Soft tissues:? Prevertebral soft tissues are normal in thickness.? No paravertebral hematomas.? No apical pneumothoraces.? Atherosclerotic calcification is noted.? ? ? IMPRESSION:? No acute fracture is seen. ? Cervical spine degenerative changes are seen, which are worst at C5-C6 and C6- C7. ? ? ? Dictated by: Daniel Galvan M.D. on 04/18/2021 at 14:08 ? ? Approved by: Daniel Galvan M.D. on 04/18/2021 at 14:09?? Chest x-ray: Radiologist's Impression: [place] [address] XRay Report Signed Patient: Chandu Vences MR#: [id number] : 1950 Acct:[id number] Age/Sex: 70 / M Date of Service: 04/18/21 Loc: ED Accession Number: [id number] ?? Procedure: XR chest 1V Ordering Provider: Leeanne Vega D.O. PROCEDURE:? XR CHEST 1V ? INDICATIONS:? fall, hit head on eliquis, prior CVA ? TECHNIQUE:? One view of the chest was acquired.? ? COMPARISON:? [facility], , XR CHEST 1VW (PORTABLE), 03/31/2015, 5:18. ? FINDINGS:? ? Surgical changes and devices:? None.? ? Lungs and pleura:? Lungs are clear.? No pleural effusions or pneumothorax.? ? Mediastinum:? Mediastinal contours appear normal.? Heart size is mildly increased.? There is a density calcified radiodensity projecting to the mediastinum right of the midline below the right bronchus. ? Bones and chest wall:? No suspicious bony lesions.? Overlying soft tissues appear unremarkable.? ? IMPRESSION:? ? 1. Mild cardiomegaly. 2.? A density calcified radiodensity projecting to the mediastinum, probably a large calcified lymph node.? ? ? Dictated by: Swetha Carl M.D. on 04/18/2021 at 15:23 ? ? Approved by: Swetha Carl M.D. on 04/18/2021 at 15:26?? MDM Narrative Medical decision making narrative: 70-year-old male had a it is described as a witnessed fall. Patient is on Eliquis. Head CT and C-spine are negative chest for has calcification. Labs are otherwise unremarkable. Patient has a slight bump in his creatinine from 1.2-1.3. Discharge Plan Departure Patient Disposition: Home Clinical Impression: Fall Activity Restrictions/Additional Instructions: Follow up with your physician for recheck. There is a calcification chest x-ray and mediastinum. It is likely a lymph node but would be appropriate to follow-up with your physician. Please return for new changes, confusion, chest pain or shortness of breath, persistent vomiting or other new or concerning changes. Prescriptions: No Action amlodipine [Norvasc] 5 MG tablet 5 mg PO QDAY Qty: 0 0RF aspirin 81 MG tablet,delayed release (DR/EC) 81 mg PO QDAY Qty: 0 0RF doxazosin 2 mg tablet 6 mg PO BEDTIME 0RF losartan 25 mg tablet 25 mg PO DAILY 0RF sertraline 50 mg tablet 50 mg PO DAILY 0RF Eliquis 5 mg tablet 5 mg PO BID 0RF atorvastatin 40 mg tablet 40 mg PO BEDTIME 0RF levothyroxine 125 mcg tablet 125 mcg PO DAILY 0RF famotidine 40 mg 40 mg PO DAILY 0RF timolol maleate 0.5 % gel forming solution See Rx Instructions .ROUTE .COMPLEX 0RF Rx Instructions: apply to left big toe after clobetasol for paronychia Referrals: Juan Chilel MD [Primary Care Provider] -
[2021-04-18 15:02] LABS: Add Manual Diff / Slide Review NO; Basophils Absolute Auto 0 /uL (0-100); Basophils Percent Auto 0.6 % (0-2); Eosinophils Absolute Auto 200 /uL (0-450); Eosinophils Percent Auto 2.6 % (2-4); Hematocrit 46.4 % (41-53); Hemoglobin 15.6 g/dL (13.5-17.5); Lymphocytes Absolute Auto 1100 /uL (1100-4500); Lymphocytes Percent Auto 19.3 % (25-40); Mean Corpuscular HGB Conc 33.6 % (30-36); Mean Corpuscular Hemoglobin 30.8 PG (26-34); Mean Corpuscular Volume 91.6 fL (80-100); Monocytes Absolute Auto 500 /uL (0-900); Monocytes Percent Auto 8.5 % (3-14); Neutrophils Absolute Auto 3900 /uL (1500-7000); Platelet Count 182 X10^3/uL (150-400); Red Blood Cell Count 5.06 X10^6/uL (4.5-5.9); Red Cell Distribution Width 14.4 % (11.6-14.8); White Blood Cell Count 5.7 X10^3/uL (4.5-11.0)
[2021-04-18 15:12] LABS: INR 1.3 (0.9-1.3); Prothrombin Time 14.9 SECONDS (10.1-12.7)
[2021-04-18 15:14] LABS: PTT Partial Thromboplastin Tim 37 SECONDS (26.4-36.2)
[2021-04-18 15:16] LABS: Alanine Aminotransferase 20 IU/L (<50); Albumin 3.8 g/dL (3.5-5.0); Albumin Globulin Ratio 1.2 (1.0-2.8); Alkaline Phosphatase 67 U/L (38-126); Aspartate Aminotransferase 25 IU/L (17-59); BUN Creatinine Ratio 18.4 (6-22); Bilirubin Total 0.6 mg/dL (0.2-1.3); Blood Urea Nitrogen 25 mg/dL (9-20); Calcium 9.5 mg/dL (8.4-10.2); Carbon Dioxide 32 mmol/L (22-32); Chloride 105 mmol/L (98-107); Estimated Glomerular Filt Rate 51.7 mL/min (>60); Globulin 3.2 g/dL (1.7-4.1); Glucose 81 mg/dL (80-110); HEMOLYSIS < 15 (0-50); Potassium 3.7 mmol/L (3.4-5.1); Sodium 142 mmol/L (137-145)
[2021-04-18 15:58] VITALS: BP 147/97; PULSE 61; RESP 17; O2SAT 98
[2021-04-18 16:36] VITALS: BP 178/100; PULSE 63; RESP 18; O2SAT 94
== END 2021-04-18 17:11 | disposition home or self-care (01) ==
PROVIDERS: Emergency Provider Emergency Medicine; PCP Internal Medicine
DX: S09.90XA Unspecified injury of head, initial encounter (principal); Z79.01 Long term (current) use of anticoagulants; W18.30XA Fall on same level, unspecified, initial encounter
CPT/HCPCS: 70450; 71045; 72125; 80053; 85025; 85610; 85730; 99284

== ENCOUNTER → 2021-05-23 14:05 | Outpatient (CLI) | payer MEDICARE, MEDICAID, SELFPAY ==
[2021-03-25 16:40] VITALS: BMI 28.8
--- NOTE | 2021-05-23 14:09 | DI.RAD.S_ITS ---
PROCEDURE: XR SHOULDER LT MIN 2V INDICATIONS: lt shoulder, r/o dislocation TECHNIQUE: 3 views of the shoulder were acquired. COMPARISON: None. FINDINGS: Bones: No fractures or dislocations. Inferior migration of the humeral head. No suspicious bony lesions. Visualized ribs appear intact. Moderate acromioclavicular and mild glenohumeral joint space narrowing with periarticular osteophyte formation. Soft tissues: No suspicious soft tissue calcifications. IMPRESSION: 1. Mild inferior migration of the humeral head and joint effusion cannot be excluded. 2. Moderate acromioclavicular and mild glenohumeral joint degeneration. Dictated by: Isaias RUEDA Interpreted: Dexter Thornton MD on 05/23/2021 at 14:35 Approved by: Dexter Thornton M.D. on 05/23/2021 at 17:23
== END ==
PROVIDERS: PCP Internal Medicine; Referring Provider Emergency Medicine; Visit Provider Emergency Medicine
DX: M19.012 Primary osteoarthritis, left shoulder (principal)
CPT/HCPCS: 73030

== ENCOUNTER 2022-11-21 14:37 | Emergency (ER) | payer MEDICARE, MEDICAID, SELFPAY ==
[2021-03-25 16:40] VITALS: BMI 28.8
[2022-11-21] VITALS (12 sets, daily range): BP systolic 120–160; BP diastolic 69–99; PULSE 59–77; RESP 12–18; TEMP 36.6; O2SAT 95–100; BMI 25.1
--- NOTE | 2022-11-21 14:51 | DI.RAD.S_ITS ---
PROCEDURE: XR CHEST 1V INDICATIONS: chest pain TECHNIQUE: One view of the chest was acquired. COMPARISON: [facility], CR, XR CHEST 1V, 04/18/2021, 14:58. FINDINGS: Surgical changes and devices: None. Lungs and pleura: Lungs are clear. No pleural effusions or pneumothorax. Mediastinum: Mediastinal contours appear normal. Heart size is enlarged. Radiodensity overlying the mediastinum is unchanged possibly calcified lymph node. Bones and chest wall: No suspicious bony lesions. Overlying soft tissues appear unremarkable. IMPRESSION: No acute pulmonary process. Dictated by: Valentina Martinez M.D. on 11/21/2022 at 15:51 Approved by: Valentina Martinez M.D. on 11/21/2022 at 15:51
[2022-11-21 15:03] LABS: INR 1.4 (0.9-1.3); Prothrombin Time 16.4 SECONDS (10.1-12.7)
[2022-11-21 15:05] LABS: Add Manual Diff / Slide Review NO; Basophils Absolute Auto 0 /uL (0-100); Basophils Percent Auto 0.8 % (0-2); Eosinophils Absolute Auto 100 /uL (0-450); Eosinophils Percent Auto 2.9 % (2-4); Hematocrit 41.5 % (41-53); Hemoglobin 13.8 g/dL (13.5-17.5); Lymphocytes Absolute Auto 1200 /uL (1100-4500); Lymphocytes Percent Auto 23.6 % (25-40); Mean Corpuscular HGB Conc 33.3 % (30-36); Mean Corpuscular Hemoglobin 30.5 PG (26-34); Mean Corpuscular Volume 91.7 fL (80-100); Monocytes Absolute Auto 500 /uL (0-900); Monocytes Percent Auto 8.9 % (3-14); Neutrophils Absolute Auto 3200 /uL (1500-7000); Neutrophils Percent Auto 63.8 % (50-75); PTT Partial Thromboplastin Tim 29 SECONDS (26-36); Platelet Count 205 X10^3/uL (150-400); Red Blood Cell Count 4.52 X10^6/uL (4.5-5.9); Red Cell Distribution Width 14.1 % (11.6-14.8)
[2022-11-21 15:14] LABS: Alanine Aminotransferase 25 IU/L (<50); Albumin 3.7 g/dL (3.5-5.0); Albumin Globulin Ratio 1.2 (1.0-2.8); Alkaline Phosphatase 57 U/L (38-126); Aspartate Aminotransferase 54 IU/L (17-59); BUN Creatinine Ratio 23.2 (6-22); Bilirubin Total 0.8 mg/dL (0.2-1.3); Blood Urea Nitrogen 32 mg/dL (9-20); Calcium 9.2 mg/dL (8.4-10.2); Carbon Dioxide 28 mmol/L (22-32); Chloride 105 mmol/L (98-107); Creatine Kinase 27 U/L (55-170); Estimated Glomerular Filt Rate 54 mL/min (>60); Globulin 3.1 g/dL (1.7-4.1); Glucose 83 mg/dL (80-110); HEMOLYSIS 29 (0-50); Lipase 65 U/L (23-300); Magnesium 2.3 mg/dL (1.6-2.3); Potassium 3.8 mmol/L (3.4-5.1); Sodium 140 mmol/L (137-145); Total Protein 6.8 g/dL (6.3-8.2)
[2022-11-21 15:25] LABS: Troponin I < 0.012 ng/mL (0.01-0.034)
--- NOTE | 2022-11-21 18:14 | ED_ITS ---
HPI - General Adult General Chief complaint: Abdominal Pain Stated complaint: Unresponsive/TIA? Resolving Time Seen by Provider: 11/21/22 15:05 Source: patient and EMS Mode of arrival: EMS Limitations: no limitations History of Present Illness HPI narrative: Patient is a 72-year-old male who was brought in by EMS. He is had history of a stroke. He is left-sided weakness because of this. He states had [facility] because of this. He stated that EMS was called by the nursing staff because he was having abdominal pain. When EMS arrived he stated that his abdominal pain was so bad and that was the reason why he was not answering any questions. He stated that the pain went away after he was moved to the EMS gurney and he is not had any pain since then. He denies chest pain, shortness of breath, headache, abdominal pain, urinary symptoms, change in bowel habits. Related Data Home Medications Medication Instructions Recorded Confirmed atorvastatin 40 mg tablet 40 mg PO BEDTIME 03/25/21 10/05/22 famotidine 40 mg PO DAILY 03/25/21 10/05/22 levothyroxine 125 mcg tablet 125 mcg PO DAILY 03/25/21 10/05/22 losartan 25 mg tablet 25 mg PO DAILY 03/25/21 10/05/22 sertraline 50 mg tablet 50 mg PO DAILY 03/25/21 10/05/22 carvedilol 25 mg tablet (Coreg) 25 mg PO BID 10/05/22 10/05/22 doxazosin PO 10/05/22 10/05/22 losartan 25 mg tablet 25 mg PO DAILY 10/05/22 10/05/22 sennosides 8.6 mg capsule (senna) 8.6 mg PO DAILY 10/05/22 10/05/22 Allergies Allergy/AdvReac Type Severity Reaction Status Date / Time Macrolide Antibiotics Allergy Intermediate RASH Verified 11/21/22 14:51 [MACROLIDE ANTIBIOTICS] mercury (elemental) Allergy Mild RASH Verified 11/21/22 14:51 [MERCURY (ELEMENTAL)] erythromycin base Allergy Unknown RASH Verified 11/21/22 14:51 [ERYTHROMYCIN BASE] Review of Systems Review of Systems ROS Unobtainable: All systems reviewed & are unremarkable except as noted in HPI and below Patient History Social History details: Resides at [facility] at this time. household members: none lives independently: No Smoking Status: Unknown if ever smoked Smoking Status: Unknown if ever smoked Substance Use Type: does not use Exam Initial Vital Signs Initial Vital Signs: Vital Signs Temperature 98 F 11/21/22 14:49 Pulse Rate 62 11/21/22 14:49 Respiratory Rate 18 11/21/22 14:49 Blood Pressure 139/69 11/21/22 14:49 Pulse Oximetry 98 11/21/22 14:49 Oxygen Delivery Method Room Air 11/21/22 14:49 Const General: cooperative, comfortable and No ill appearing HENMT Head: normal to inspection and normocephalic Resp Effort & Inspection: normal respiratory effort Auscultation: clear to auscultation bilaterally Cardio Rate: bradycardic Rhythm: abnormal rhythm GI Inspection: normal to inspection and non-distended Palpation: soft and No tender Neuro General: patient alert, patient awake, patient oriented x3 and moves all extremities Speech: speech normal Extrem General: capillary refill normal Course Orders Ordered: ED Orders 11/21/22 17:51 Trop I [Troponin I] Stat Discontinued Medications Aspirin (Aspirin 81 Mg Chew Tab) 324 mg PO NOW ONE Stop: 11/21/22 14:52 Vital Signs Vital signs: Vital Signs - 8 hr 11/21/22 17:30 11/21/22 17:30 11/21/22 18:00 Pulse Rate 74 72 Respiratory Rate 12 Blood Pressure 160/78 H Pulse Oximetry 98 95 11/21/22 18:01 11/21/22 18:01 11/21/22 18:30 Pulse Rate 70 Respiratory Rate 12 Blood Pressure 148/70 H 150/99 H Pulse Oximetry 95 11/21/22 18:30 Pulse Rate 77 Respiratory Rate 15 Blood Pressure Pulse Oximetry 97 Medical Decision Making Lab Data Lab results reviewed: Yes I reviewed the patient's lab results. 11/21/22 14:55 11/21/22 14:55 Labs: Lab Results 11/21/22 11/21/22 11/21/22 Range/Units 14:55 14:55 14:55 WBC 5.0 (4.5-11.0) X10^3/uL RBC 4.52 (4.5-5.9) X10^6/uL Hgb 13.8 (13.5-17.5) g/dL Hct 41.5 (41-53) % MCV 91.7 (80-100) fL MCH 30.5 (26-34) PG MCHC 33.3 (30-36) % RDW 14.1 (11.6-14.8) % Plt Count 205 (150-400) X10^3/uL Neut % (Auto) 63.8 (50-75) % Lymph % (Auto) 23.6 L (25-40) % Rankin % (Auto) 8.9 (3-14) % Eos % (Auto) 2.9 (2-4) % Baso % (Auto) 0.8 (0-2) % Neut # (Auto) 3200 (7624-0712) /uL Lymph # (Auto) 1200 (0798-6165) /uL Rankin # (Auto) 500 (0-900) /uL Eos # (Auto) 100 (0-450) /uL Baso # (Auto) 0 (0-100) /uL PT 16.4 H (10.1-12.7) SECONDS INR 1.4 H (0.9-1.3) APTT 29 (26-36) SECONDS Sodium 140 (137-145) mmol/L Potassium 3.8 (3.4-5.1) mmol/L Chloride 105 (98-107) mmol/L Carbon Dioxide 28 (22-32) mmol/L BUN 32 H (9-20) mg/dL Creatinine 1.38 H (0.66-1.25) mg/dL Estimated GFR 54 L (>60) mL/min BUN/Creatinine Ratio 23.2 H (6-22) Glucose 83 (80-110) mg/dL Calcium 9.2 (8.4-10.2) mg/dL Magnesium 2.3 (1.6-2.3) mg/dL Total Bilirubin 0.8 (0.2-1.3) mg/dL AST 54 (17-59) IU/L ALT 25 (<50) IU/L Alkaline Phosphatase 57 (38-126) U/L Total Creatine Kinase 27 L (55-170) U/L Troponin I < 0.012 (0.01-0.034) ng/mL Total Protein 6.8 (6.3-8.2) g/dL Albumin 3.7 (3.5-5.0) g/dL Globulin 3.1 (1.7-4.1) g/dL Albumin/Globulin Ratio 1.2 (1.0-2.8) Lipase 65 (23-300) U/L 11/21/22 Range/Units 17:51 WBC (4.5-11.0) X10^3/uL RBC (4.5-5.9) X10^6/uL Hgb (13.5-17.5) g/dL Hct (41-53) % MCV (80-100) fL MCH (26-34) PG MCHC (30-36) % RDW (11.6-14.8) % Plt Count (150-400) X10^3/uL Neut % (Auto) (50-75) % Lymph % (Auto) (25-40) % Rankin % (Auto) (3-14) % Eos % (Auto) (2-4) % Baso % (Auto) (0-2) % Neut # (Auto) (0173-1527) /uL Lymph # (Auto) (3621-2735) /uL Rankin # (Auto) (0-900) /uL Eos # (Auto) (0-450) /uL Baso # (Auto) (0-100) /uL PT (10.1-12.7) SECONDS INR (0.9-1.3) APTT (26-36) SECONDS Sodium (137-145) mmol/L Potassium (3.4-5.1) mmol/L Chloride (98-107) mmol/L Carbon Dioxide (22-32) mmol/L BUN (9-20) mg/dL Creatinine (0.66-1.25) mg/dL Estimated GFR (>60) mL/min BUN/Creatinine Ratio (6-22) Glucose (80-110) mg/dL Calcium (8.4-10.2) mg/dL Magnesium (1.6-2.3) mg/dL Total Bilirubin (0.2-1.3) mg/dL AST (17-59) IU/L ALT (<50) IU/L Alkaline Phosphatase (38-126) U/L Total Creatine Kinase (55-170) U/L Troponin I 0.015 (0.01-0.034) ng/mL Total Protein (6.3-8.2) g/dL Albumin (3.5-5.0) g/dL Globulin (1.7-4.1) g/dL Albumin/Globulin Ratio (1.0-2.8) Lipase (23-300) U/L Imaging Data Chest x-ray: Radiologist's Impression: PROCEDURE:? XR CHEST 1V ? INDICATIONS:? chest pain ? TECHNIQUE:? One view of the chest was acquired.? ? COMPARISON:? [facility], CR, XR CHEST 1V, 04/18/2021, 14:58. ? FINDINGS:? ? Surgical changes and devices:? None.? ? Lungs and pleura:? Lungs are clear.? No pleural effusions or pneumothorax.? ? Mediastinum:? Mediastinal contours appear normal.? Heart size is enlarged.? Radiodensity overlying the mediastinum is unchanged possibly calcified lymph node. ? Bones and chest wall:? No suspicious bony lesions.? Overlying soft tissues appear unremarkable.? ? IMPRESSION:? No acute pulmonary process. ECG Data Attestation: I personally reviewed and interpreted this ECG as follows: Interpretation: Atrial fibrillation Ventricular rate of 46 Normal QRS Normal QTC No ST T wave changes MDM Narrative Medical decision making narrative: Patient is alert and oriented x3. He has been here in the emergency department for approximately 4 hours prior to my evaluation. He states he is not had any discomfort since then. He is no other complaints. He is not been vomiting. No change in bowel habits. His labs are unremarkable. Feel that we can hold on further workup for now since it has now been almost 4 hours since he had the onset of the symptoms. Will discharge patient home with return precautions. He expressed understanding and agreement. Discharge Plan Departure Patient Disposition: Home Clinical Impression: Abdominal pain Instructions: DI for Abdominal Pain-Adult Activity Restrictions/Additional Instructions: Recommend that you continue to take all of your medications as directed. Contact your primary doctor for follow-up. Return to the emergency department for new or worsening symptoms. Prescriptions: No Action carvedilol [Coreg] 25 mg tablet 25 mg PO BID Rx Instructions: must administer with a meal/food doxazosin PO losartan 25 mg tablet 25 mg PO DAILY senna 8.6 mg capsule 8.6 mg PO DAILY losartan 25 mg tablet 25 mg PO DAILY sertraline 50 mg tablet 50 mg PO DAILY atorvastatin 40 mg tablet 40 mg PO BEDTIME levothyroxine 125 mcg tablet 125 mcg PO DAILY famotidine 40 mg 40 mg PO DAILY Referrals: Juan Chilel MD [Primary Care Provider] - Stand Alone Forms: Patient Portal/API
[2022-11-21 18:25] LABS: Troponin I 0.015 ng/mL (0.01-0.034)
== END 2022-11-21 18:50 | disposition home or self-care (01) ==
PROVIDERS: Emergency Medicine; Emergency Provider Emergency Medicine; PCP Internal Medicine
DX: R10.9 Unspecified abdominal pain (principal); I48.91 Unspecified atrial fibrillation
CPT/HCPCS: 36415; 71045; 80053; 82550; 83690; 83735; 84484; 85025; 85610; 85730; 93005; 99284

== ENCOUNTER → 2023-01-10 07:25 | Outpatient (ROUT) | payer MEDICARE, MEDICAID, SELFPAY ==
[2021-03-25 16:40] VITALS: BMI 28.8
[2023-01-10 07:34] LABS: Appearance Urine UA CLEAR; Bilirubin Urine UA NEGATIVE (NEGATIVE); Color Urine UA YELLOW; Glucose Urine UA NEGATIVE (Negative); Ketones Urine UA NEGATIVE (NEGATIVE); Leukocyte Esterase Urine UA TRACE (NEGATIVE); Nitrite Urine UA NEGATIVE (Negative); Occult Blood Urine UA 3+ (Negative); Protein Urine UA 2+ (Negative); Specific Gravity Urine UA 1.025 (1.000-1.035)
[2023-01-10 07:45] LABS: Amorphous Sediment Urine 1+; Bacteria Urine Few (2-10); Culture Indicated Urine Specimen Cultured; RBC Urine 5-10/HPF (0-5/HPF); Squamous Epithelial Cell Urine 1-5 /HPF (0-5/HPF); WBC Urine 5-10/HPF (0-5/HPF)
== END ==
PROVIDERS: PCP Internal Medicine; Visit Provider Nurse Practitioner Family
DX: Z13.9 Encounter for screening, unspecified (principal)
CPT/HCPCS: 81001; 87077; 87086; 87186

== ENCOUNTER → 2023-01-24 12:07 | Outpatient (ROUT) | payer MEDICARE, MEDICAID, SELFPAY ==
[2021-03-25 16:40] VITALS: BMI 28.8
[2023-01-24 12:23] LABS: Add Manual Diff / Slide Review NO; Basophils Absolute Auto 0 /uL (0-100); Basophils Percent Auto 0.6 % (0-2); Eosinophils Absolute Auto 200 /uL (0-450); Eosinophils Percent Auto 2.9 % (2-4); Hematocrit 41.4 % (41-53); Hemoglobin 13.6 g/dL (13.5-17.5); Lymphocytes Absolute Auto 900 /uL (1100-4500); Lymphocytes Percent Auto 15.1 % (25-40); Mean Corpuscular HGB Conc 32.7 % (30-36); Mean Corpuscular Hemoglobin 30.3 PG (26-34); Mean Corpuscular Volume 92.7 fL (80-100); Monocytes Absolute Auto 500 /uL (0-900); Monocytes Percent Auto 7.9 % (3-14); Neutrophils Absolute Auto 4500 /uL (1500-7000); Neutrophils Percent Auto 73.5 % (50-75); Platelet Count 224 X10^3/uL (150-400); Red Blood Cell Count 4.47 X10^6/uL (4.5-5.9); Red Cell Distribution Width 14.8 % (11.6-14.8); White Blood Cell Count 6.2 X10^3/uL (4.5-11.0)
[2023-01-24 12:31] LABS: Alanine Aminotransferase 17 IU/L (<50); Alkaline Phosphatase 55 U/L (38-126); Aspartate Aminotransferase 24 IU/L (17-59); BUN Creatinine Ratio 25.6 (6-22); Bilirubin Total 0.3 mg/dL (0.2-1.3); Blood Urea Nitrogen 32 mg/dL (9-20); Carbon Dioxide 26 mmol/L (22-32); Chloride 106 mmol/L (98-107); Estimated Glomerular Filt Rate > 60 mL/min (>60); Globulin 3.1 g/dL (1.7-4.1); Glucose 106 mg/dL (80-110); HEMOLYSIS < 15 (0-50); Potassium 3.5 mmol/L (3.4-5.1); Sodium 138 mmol/L (137-145); Total Protein 6.1 g/dL (6.3-8.2)
== END ==
PROVIDERS: PCP Internal Medicine; Visit Provider Internal Medicine
DX: N39.0 Urinary tract infection, site not specified (principal); B96.20 Unspecified Escherichia coli [E. coli] as the cause of diseases classified elsewhere
CPT/HCPCS: 80053; 85025

== ENCOUNTER → 2023-07-09 11:21 | Outpatient (ROUT) | payer MEDICARE, MEDICAID, SELFPAY ==
[2021-03-25 16:40] VITALS: BMI 28.8
[2023-07-09 12:26] LABS: Influenza A - CEPHEID Flu A NEGATIVE (NEGATIVE); Influenza B - CEPHEID Flu B NEGATIVE (NEGATIVE); Respiratory Syncytial Virus Negative (Negative)
[2023-07-09 12:29] LABS: COVID-19 CEPHEID 4-PLEX PCR Negative (Negative)
== END ==
PROVIDERS: PCP Internal Medicine; Visit Provider Nurse Practitioner
DX: I63.9 Cerebral infarction, unspecified (principal); I69.354 Hemiplegia and hemiparesis following cerebral infarction affecting left non-dominant side; R55 Syncope and collapse
CPT/HCPCS: 0241U

== ENCOUNTER → 2023-07-24 16:13 | Outpatient (ROUT) | payer MEDICARE, MEDICAID, SELFPAY ==
[2021-03-25 16:40] VITALS: BMI 28.8
== END ==
PROVIDERS: PCP Internal Medicine; Visit Provider Internal Medicine
DX: L08.9 Local infection of the skin and subcutaneous tissue, unspecified (principal)
CPT/HCPCS: 87070; 87075; 87077; 87186; 87205

== ENCOUNTER 2024-01-09 20:52 | Emergency (ER) | payer MEDICARE, MEDICAID, SELFPAY ==
[2021-03-25 16:40] VITALS: BMI 28.8
[2024-01-09] VITALS (8 sets, daily range): BP systolic 135–152; BP diastolic 78–89; PULSE 64–88; RESP 18; TEMP 37.1; O2SAT 97–98; BMI 27.2
--- NOTE | 2024-01-09 20:52 | ED.GENADULT ---
HPI - General Adult General Chief complaint: Recheck/Abnormal Lab/Rx Stated complaint: feeding tube fell out Time Seen by Provider: 01/09/24 20:53 Source: patient, RN notes reviewed and old records reviewed Mode of arrival: EMS Limitations: no limitations History of Present Illness HPI narrative: 72-year-old male history of stroke, persistent left-sided deficit with feeding tube in place. Patient states he eats his meals but they give medications through his feeding tube. He states it is about 4 years old he states it fell out sometime this evening he thinks when they were moving him in the bed. Someone had placed a Barth catheter in place of it prior to patient's arrival. Patient denies any pain or other issues. EMS arrives they are unsure of the size of his feeding tube, they did not send the one that fell out. Related Data Home Medications Medication Instructions Recorded Confirmed atorvastatin 40 mg tablet 40 mg PO BEDTIME 03/25/21 10/05/22 famotidine 40 mg PO DAILY 03/25/21 10/05/22 levothyroxine 125 mcg tablet 125 mcg PO DAILY 03/25/21 10/05/22 losartan 25 mg tablet 25 mg PO DAILY 03/25/21 10/05/22 sertraline 50 mg tablet 50 mg PO DAILY 03/25/21 10/05/22 carvedilol 25 mg tablet (Coreg) 25 mg PO BID 10/05/22 10/05/22 doxazosin PO 10/05/22 10/05/22 losartan 25 mg tablet 25 mg PO DAILY 10/05/22 10/05/22 sennosides 8.6 mg capsule (senna) 8.6 mg PO DAILY 10/05/22 10/05/22 Allergies Allergy/AdvReac Type Severity Reaction Status Date / Time Macrolide Antibiotics Allergy Intermediate RASH Verified 11/21/22 14:51 [MACROLIDE ANTIBIOTICS] mercury (elemental) Allergy Mild RASH Verified 11/21/22 14:51 [MERCURY (ELEMENTAL)] erythromycin base Allergy Unknown RASH Verified 11/21/22 14:51 [ERYTHROMYCIN BASE] Review of Systems Review of Systems ROS Unobtainable: All systems reviewed & are unremarkable except as noted in HPI and below Patient History Social History details: Resides at [facility] at this time. household members: none lives independently: No Smoking Status: Unknown if ever smoked Smoking Status: Unknown if ever smoked Substance Use Type: does not use Exam Narrative Exam Narrative: GENERAL: Alert and oriented x three, male in no acute distress. HEENT: Head normocephalic, atraumatic, EOMI, pupils reactive, face symmetric, moist mucous membranes NECK: Supple, full range of motion CARDIOVASCULAR: Regular rate and rhythm without murmurs, rubs or gallops. RESPIRATORY: Breath sounds equal bilaterally, no wheezes rales or rhonchi. ABDOMEN: Soft, nontender. Normoactive bowel sounds all 4 quadrants. No guarding or rebound, rigidity, no mass, patient has Barth catheter protruding from his feeding tube stoma. Clean dry and intact catheter appears to be in place. : No CVA tenderness EXTREMITIES: Normal range of motion, no clubbing or edema. Neurovascularly intact NEUROLOGICAL: Cranial nerves II through XII grossly intact. Moving all extremities SKIN: Warm, dry, no petechiae, no rashes or lesions. Initial Vital Signs Initial Vital Signs: Vital Signs Pulse Rate 70 01/09/24 20:56 Blood Pressure 152/89 H 01/09/24 20:56 Course Orders Ordered: ED Orders 01/09/24 21:44 XR KUB Stat Vital Signs Vital signs: Vital Signs - 8 hr 01/09/24 20:56 01/09/24 20:56 01/09/24 21:00 Temperature Pulse Rate 70 Respiratory Rate Blood Pressure 152/89 H 152/78 H Pulse Oximetry Oxygen Delivery Method 01/09/24 21:00 01/09/24 21:01 01/09/24 21:30 Temperature 98.7 F Pulse Rate 85 77 88 Respiratory Rate 18 Blood Pressure 152/89 H Pulse Oximetry 97 97 98 Oxygen Delivery Method Room Air Room Air 01/09/24 21:31 01/09/24 21:31 01/09/24 22:00 Temperature Pulse Rate 86 Respiratory Rate Blood Pressure 141/82 H 135/79 Pulse Oximetry 98 Oxygen Delivery Method 01/09/24 22:00 01/09/24 22:30 01/09/24 22:30 Temperature Pulse Rate 78 64 Respiratory Rate Blood Pressure 140/85 Pulse Oximetry 98 98 Oxygen Delivery Method 01/09/24 23:00 01/09/24 23:00 Temperature Pulse Rate 81 Respiratory Rate Blood Pressure 137/82 Pulse Oximetry 98 Oxygen Delivery Method Room Air Medical Decision Making Imaging Data Abdominal x-ray: Radiologist's Impression: [address] [address] XRay Report Signed Patient: Chandu Vences MR#: [id number] : 1950 Acct:[id number] Age/Sex: 73 / M Date of Service: 01/09/24 Loc: ED Accession Number: [id number] Procedure: XR KUB Ordering Provider: Leeanne Vega D.O. PROCEDURE: XR KUB INDICATIONS: Confirm G-tube placement TECHNIQUE: One view of the abdomen acquired. COMPARISON: None. FINDINGS: Surgical changes and devices: Gastrostomy tube projecting over the left upper abdomen. Bowel: Contrast has been injected through the gastrostomy tube which appears to be within the stomach. Bowel gas pattern is normal. Soft tissues: No suspicious abdominal calcifications. Visualized solid organ contours appear normal in size. Bones: No suspicious bony lesions. IMPRESSION: Contrast has been injected through the gastrostomy tube which appears to be within the stomach. Dictated by: Zak Everett M.D. on 01/09/2024 at 22:22 Approved by: Zak Everett M.D. on 01/09/2024 at 22:23 MDM Narrative Medical decision making narrative: [facility] to [facility] or patient was sent to see if we can find out what size feeding tube he has and if we have any available but he does currently have a 14 Tunis[place] Barth catheter which appears in place. Nursing did draw back does have gastric contents. Had some difficulty finding the tube initially, spoke with Dr. Blum who says that we do have gastrostomy tubes here in the department but if patient has catheter in place and were not able to find them patient can follow up tomorrow with the office if necessary. Otherwise if you are able to find 1 can replaced here in the department. Could not find a 20 Tunisian gastrostomy tube was able to find a 22 Tunisian. Was able to pass with some gentle pressure. Patient was comfortable throughout procedure. Was able to aspirate gastric contents with a pH of 3. KUB with gastrograffin was performed and and appears tube is in place. Dressing was placed. Discharge Plan Departure Patient Disposition: Home Clinical Impression: Malfunction of gastrostomy tube Activity Restrictions/Additional Instructions: You had your gastrotomy tube replaced with a 22 Tunisian. Please return if you have difficulty using your PEG tube, fevers, new abdominal pain, vomiting, swelling or redness around the site or other new or concerning changes. Prescriptions: No Action carvedilol [Coreg] 25 mg tablet 25 mg PO BID Rx Instructions: must administer with a meal/food doxazosin PO losartan 25 mg tablet 25 mg PO DAILY senna 8.6 mg capsule 8.6 mg PO DAILY losartan 25 mg tablet 25 mg PO DAILY sertraline 50 mg tablet 50 mg PO DAILY atorvastatin 40 mg tablet 40 mg PO BEDTIME levothyroxine 125 mcg tablet 125 mcg PO DAILY famotidine 40 mg 40 mg PO DAILY Referrals: Juan Chilel MD [Primary Care Provider] - Stand Alone Forms: Patient Portal/API
--- NOTE | 2024-01-09 21:44 | DI.RAD.S_ITS ---
PROCEDURE: XR KUB INDICATIONS: Confirm G-tube placement TECHNIQUE: One view of the abdomen acquired. COMPARISON: None. FINDINGS: Surgical changes and devices: Gastrostomy tube projecting over the left upper abdomen. Bowel: Contrast has been injected through the gastrostomy tube which appears to be within the stomach. Bowel gas pattern is normal. Soft tissues: No suspicious abdominal calcifications. Visualized solid organ contours appear normal in size. Bones: No suspicious bony lesions. IMPRESSION: Contrast has been injected through the gastrostomy tube which appears to be within the stomach. Dictated by: Zak Everett M.D. on 01/09/2024 at 22:22 Approved by: Zak Everett M.D. on 01/09/2024 at 22:23
== END 2024-01-09 23:15 | disposition home or self-care (01) ==
PROVIDERS: Emergency Provider Emergency Medicine; PCP Internal Medicine
DX: K94.29 Other complications of gastrostomy (principal)
CPT/HCPCS: 43762; 74018; 99281; 99283

== ENCOUNTER → 2024-07-03 12:28 | Outpatient (CLI) | payer MEDICARE, MEDICAID, SELFPAY ==
[2021-03-25 16:40] VITALS: BMI 28.8
--- NOTE | 2024-07-03 12:30 | DI.ECHO.S_ITS ---
[facility] +---------+ [facility] : : [address] : : [place] : : [id number] : : Phone: [phone] Echocardiogram Report + + :Name: PHYLLIS COX Study Date: 07/03/2024 Height: 70 in : :Hospital ReadingLocation: Weight: 198 lb: : Gender: Male BSA: 2.1 m2 : :: 1950 Age: 74 yrs : :Reason For Study: HEART FAILING : :Ordering Physician: RADHA, : :ALISA Nunez Performed By: Naseem Basurto : :Referring: ALISA GARCIA : + + Interpretation Summary This is a technically difficult study characterized by off axis apical view - pt was sitting in wheelchair during exam. Afib with controlled rate. Normal LV size; severe concentric LVH; mildly reduced EF and mild global hypokinesis. EF is estimated at 45-50%. Mild LA enlargement; otherwise normal chamber sizes. Aortic sclerosis without stenosis. Mildly dilated ascending aorta. Compared to prior echo 03/26/2021 LV function is down from 60-65% to 45-50%. Procedure: A two-dimensional transthoracic echocardiogram with color flow and Doppler was performed. The study quality was technically difficult. The study quality was technically limited. Comparison is made with the echocardiogram of 03/26/2021. The patient was in atrial fibrillation with heart rates between 60-102 bpm during the exam. Left Ventricle: The left ventricle is normal in size. Left ventricular wall thickness is severely increased. There is no ventricular septal defect visualized. The ejection fraction is estimated to be 45-50%. Diastolic function could not be accurately assessed due to atrial fibrillation. Right Ventricle: The right ventricle is not well visualized. Atria: The left atrium is mildly dilated. Right atrial size is normal. The interatrial septum is not well visualized. Mitral Valve: The mitral valve leaflets appear normal. There is no evidence of stenosis, fluttering, or prolapse. There is no mitral regurgitation noted. Aortic Valve: The aortic valve is trileaflet. The aortic valve is mildly calcified. There is no hemodynamically significant valvular aortic stenosis. No aortic regurgitation is present. Tricuspid Valve: The tricuspid valve is not well visualized, but is grossly normal. No tricuspid regurgitation. Pulmonic Valve: The pulmonic valve leaflets are thin and pliable; valve motion is normal. There is trace pulmonic regurgitation. Great Vessels: The aortic root is normal size. The ascending aorta is mildly enlarged. The pulmonary artery is normal size. The inferior vena cava was not visualized. Pericardium/ Pleura There is no pericardial effusion. MMode/2D Measurements & Calculations LVIDd: 4.1 cm LVOT diam: 2.1 cm LVIDs: 3.2 cm Ao root diam: 3.3 cm FS: 21.5 % asc Aorta Diam: 4.0 cm EPSS: 0.94 cm IVSd: 1.6 cm LVPWd: 1.5 cm LV ruiz. diameter/BSA (cm/m^2): 2.0 LV sys. diameter/BSA (cm/m^2): 1.6 LA A2 area: 22.6 cm2 RA long axis: 4.7 cm LA A4 area: 22.5 cm2 RA area: 13.2 cm2 LA length (vol): 5.7 cm RA vol: 31.8 ml LA vol: 76.2 ml RA : 15.3 ml/m2 LA vol index: 36.7 ml/m2 Doppler Measurements & Calculations Ao V2 max: 108.2 cm/sec LVOT Max Jesse: 42.4 cm/sec Ao V2 mean: 83.1 cm/sec LV V1 max P.72 mmHg Ao max P.7 mmHg LV V1 VTI: 8.7 cm Ao mean P.9 mmHg ASUNCION(I,D): 1.4 cm2 Ao V2 VTI: 20.9 cm ASUNCION(V,D): 1.4 cm2 sev ratio: 0.42 ASUNCION indexed to BSA (cm^2/m^2): 0.69 MV E max jesse: 52.6 cm/sec PA V2 max: 57.2 cm/sec MV A max jesse: 16.9 cm/sec PA V2 mean: 37.0 cm/sec MV E/A: 3.1 PA mean P.63 mmHg Med Peak E' Jesse: 7.1 cm/sec PA pr(Accel): 55.0 mmHg E/E' med: 7.4 Lat Peak E' Jesse: 8.2 cm/sec E/E' lat: 6.4 E/e' average: 6.9 MV dec time: 0.18 sec SV(LVOT): 30.2 ml Electronically signed by: Sangeetha Egan M.D. on Reading Physician:07/04/2024 01:56 AM
== END ==
PROVIDERS: PCP Internal Medicine; Referring Provider Nurse Practitioner Family; Visit Provider Nurse Practitioner Family
DX: I50.9 Heart failure, unspecified (principal); I77.89 Other specified disorders of arteries and arterioles
CPT/HCPCS: 93306

== ENCOUNTER 2024-10-16 20:10 | Emergency (ER) | payer MEDICARE, MEDICAID, SELFPAY ==
[2021-03-25 16:40] VITALS: BMI 28.8
[2024-10-16 20:17] VITALS: BP 134/94; PULSE 98; RESP 18; TEMP 36.8; O2SAT 97
--- NOTE | 2024-10-16 21:09 | DI.RAD.S_ITS ---
PROCEDURE: XR KUB INDICATIONS: PEG Tube placement TECHNIQUE: One view of the abdomen acquired. COMPARISON: [facility], CR, XR KUB, 01/09/2024, 21:47. FINDINGS: Surgical changes and devices: There is a gastrostomy tube. Contrast injected through the tube is seen accumulating in the gastric fundus . No abnormal contrast accumulation. Bowel: Bowel gas pattern is normal. Soft tissues: No suspicious abdominal calcifications. Visualized solid organ contours appear normal in size. Bones: No suspicious bony lesions. IMPRESSION: Good position of the gastrostomy tube, with no signs of obstruction or leak on this single image. Dictated by: Jarett Gifford M.D. on 10/16/2024 at 21:57 Approved by: Jarett Gifford M.D. on 10/16/2024 at 21:58
--- NOTE | 2024-10-16 21:49 | PM.CN.IH.1 ---
History of Present Illness Consult details Date Patient Seen: 10/16/24 Time Patient Seen: 21:49 Chief complaint: accidentally removed feeding tube Reason for consult: dislodged G-tube Narrative: Patient presents after dislodging his G-tube. he has had the tube fo 2 years. this occured at his care home and they quicly placed a 20 fr rogers. Meds Home Medications and Allergies Home Medications ?Medication ?Instructions ?Recorded ?Confirmed ?Type atorvastatin 40 mg tablet 40 mg PO BEDTIME 03/25/21 10/05/22 History famotidine 40 mg PO DAILY 03/25/21 10/05/22 History levothyroxine 125 mcg tablet 125 mcg PO DAILY 03/25/21 10/05/22 History losartan 25 mg tablet 25 mg PO DAILY 03/25/21 10/05/22 History sertraline 50 mg tablet 50 mg PO DAILY 03/25/21 10/05/22 History carvedilol 25 mg tablet (Coreg) 25 mg PO BID 10/05/22 10/05/22 History doxazosin PO 10/05/22 10/05/22 History losartan 25 mg tablet 25 mg PO DAILY 10/05/22 10/05/22 History sennosides 8.6 mg capsule (senna) 8.6 mg PO DAILY 10/05/22 10/05/22 History Allergies Allergy/AdvReac Type Severity Reaction Status Date / Time Macrolide Antibiotics Allergy Intermediate RASH Verified 10/16/24 20:17 (MACROLIDE ANTIBIOTICS) mercury (elemental) (MERCURY Allergy Mild RASH Verified 10/16/24 20:17 (ELEMENTAL)) erythromycin base Allergy Unknown RASH Verified 10/16/24 20:17 (ERYTHROMYCIN BASE) Exam Vital Signs (past 8 hours): - 10/16/24 20:17 Temperature 98.2 F Pulse Rate 98 H Respiratory Rate 18 Blood Pressure 134/94 H Pulse Oximetry 97 Oxygen Delivery Method Room Air Oxygen Delivery Method Room Air Narrative Exam Narrative: patient with a 20 [place] rogers in his g-tube sitye. the rogers was removed and a 22 fr Blanca tube. the position was confirmed by a portable KUB after omnipaque was infused through the tube. COUNT INCLUDES THE [facility] Social History details: Resides at [facility] at this time. household members: none lives independently: No Tobacco & Substance Use Smoking Status: Never smoker Assessment & Plan Assessment and plan (1) Malfunction of percutaneous endoscopic gastrostomy (PEG) tube: Status: Acute Plan position confirmed after KUB performed after omnipaque infused through G-tube. ok to D/C patienjt. HOWARD to use G-tube Time-Based Coding :: [TOTAL MINUTES] spent with patient and on the chart (including review of chart, obtaining history, exam, reviewing outside data, placing orders, documenting exam and treatment plan, and counseling patient) on [DATE]. PROFEE Charge Codes Inpatient or Observation consultation: 74110
--- NOTE | 2024-10-16 21:50 | PC.NURSE ---
Danielle from CT verified gastrophraphin order with MD and with the nurse. The nurse erroneously imput 500cc. 50cc ordered. Only 50cc were given.
--- NOTE | 2024-10-17 01:02 | ED_ITS ---
HPI - Recheck/Abnormal Lab/Rx General Chief Complaint: Recheck/Abnormal Lab/Rx Stated Complaint: accidentally removed feeding tube Time Seen by Provider: 10/16/24 20:28 Source: patient and EMS Mode of arrival: EMS History of Present Illness HPI narrative: PLEASANT 74-YEAR-OLD MAN COMES TO US FROM [facility] WHERE HE LIVES IN A DEMENTIA CARE UNIT BECAUSE HIS PEG TUBE WAS ACCIDENTALLY DISLODGED WHILE BEING MOVED. HE DENIES ANY OTHER CONCERNS OR COMPLAINTS AT THIS TIME. Related Data Home Medications ?Medication ?Instructions ?Recorded ?Confirmed atorvastatin 40 mg tablet 40 mg PO BEDTIME 03/25/21 famotidine 40 mg PO DAILY 03/25/2109/22 levothyroxine 125 mcg tablet 125 mcg PO DAILY 03/25/21 10/05/22 losartan 25 mg tablet 25 mg PO DAILY 03/25/2109/22 sertraline 50 mg tablet 50 mg PO DAILY 03/25/2109/22 carvedilol 25 mg tablet (Coreg) 25 mg PO BID 10/05/22 10/05/22 doxazosin PO 10/05/22 10/05/22 losartan 25 mg tablet 25 mg PO DAILY 10/05/2209/22 sennosides 8.6 mg capsule (senna) 8.6 mg PO DAILY 09/2210/05/22 Allergies Allergy/AdvReac Type Severity Reaction Status Date / Time Macrolide Antibiotics Allergy Intermediate RASH Verified 10/16/24 20:17 (MACROLIDE ANTIBIOTICS) mercury (elemental) (MERCURY Allergy Mild RASH Verified 10/16/24 20:17 (ELEMENTAL)) erythromycin base Allergy Unknown RASH Verified 10/16/24 20:17 (ERYTHROMYCIN BASE) Patient History Social History details: Resides at [facility] at this time. household members: none lives independently: No Smoking Status: Never smoker Smoking Status: Never smoker Exam Initial Vital Signs Initial Vital Signs: Vital Signs Temperature 98.2 F 10/16/24 20:17 Pulse Rate 98 H 10/16/24 20:17 Respiratory Rate 18 10/16/24 20:17 Blood Pressure 134/94 H 10/16/24 20:17 Pulse Oximetry 97 10/16/24 20:17 Oxygen Delivery Method Room Air 10/16/24 20:17 Const General: comfortable, No in distress and No ill appearing GI Inspection: no edema, non-distended, no visible herniation and other (PEG TUBE WOUND IN PLACE, NORMAL IN APPEARANCE) Palpation: soft and No tender Auscultation: normal bowel sounds Course Course Course Narrative: PATIENT SEEN AND EXAMINED BY MYSELF. HIS PEG TUBE WAS DISLODGED. THANKFULLY, OUR LOCAL SURGEON WAS ABLE TO COME IN AND REPLACE THE PEG TUBE. PLACEMENT WAS CONFIRMED BY X-RAY ORDERED BY THE SURGEON. THE PATIENT WAS SENT BACK TO HIS CARE FACILITY IN STABLE CONDITION. Orders Ordered: ED Orders 10/16/24 21:09 XR KUB Stat Vital Signs Vital signs: Vital Signs - 8 hr 10/16/24 20:17 Temperature 98.2 F Pulse Rate 98 H Respiratory Rate 18 Blood Pressure 134/94 H Pulse Oximetry 97 Oxygen Delivery Method Room Air MDM - Recheck/Abnormal Lab/Rx Differential Diagnosis Differential diagnosis: Likely encounter for wound recheck and other Discharge Plan Departure Patient Disposition: Home Clinical Impression: Malfunction of percutaneous endoscopic gastrostomy (PEG) tube Activity Restrictions/Additional Instructions: If there is any further concerns always feel free to return to the ER. Otherwise, have your primary care at the [facility] see you as soon as possible. If there are any further complications with the PEG tube please return to the ER or follow up with the surgeon who placed it. Prescriptions: No Action carvedilol [Coreg] 25 mg tablet 25 mg PO BID Rx Instructions: must administer with a meal/food doxazosin PO losartan 25 mg tablet 25 mg PO DAILY senna 8.6 mg capsule 8.6 mg PO DAILY losartan 25 mg tablet 25 mg PO DAILY sertraline 50 mg tablet 50 mg PO DAILY atorvastatin 40 mg tablet 40 mg PO BEDTIME levothyroxine 125 mcg tablet 125 mcg PO DAILY famotidine 40 mg 40 mg PO DAILY Referrals: Juan Chilel MD [Primary Care Provider, Internal Medicine] - As soon as possible Stand Alone Forms: Patient Portal/API
[2024-10-17 01:50] VITALS: BP 129/73; PULSE 89; RESP 16; O2SAT 96
== END 2024-10-17 01:35 | disposition home or self-care (01) ==
PROVIDERS: Emergency Provider Emergency Medicine; PCP Internal Medicine
DX: K94.23 Gastrostomy malfunction (principal)
CPT/HCPCS: 74018; 99281; 99283

== ENCOUNTER → 2025-02-10 17:14 | Outpatient (ROUT) | payer MEDICARE, MEDICAID, SELFPAY ==
[2021-03-25 16:40] VITALS: BMI 28.8
== END ==
PROVIDERS: PCP Internal Medicine; Visit Provider Registered Nurse
DX: L03.032 Cellulitis of left toe (principal)
CPT/HCPCS: 87070; 87075; 87077; 87186; 87205

== ENCOUNTER → 2025-03-04 17:50 | Outpatient (ROUT) | payer MEDICARE, MEDICAID, SELFPAY ==
[2021-03-25 16:40] VITALS: BMI 28.8
[2025-03-04 18:14] LABS: Hematocrit 41.4 % (41-53); Hemoglobin 13.4 g/dL (13.5-17.5); Mean Corpuscular HGB Conc 32.3 % (30-36); Mean Corpuscular Hemoglobin 31.3 PG (26-34); Mean Corpuscular Volume 96.9 fL (80-100); Platelet Count 83 X10^3/uL (150-400)
[2025-03-04 18:17] LABS: Add Manual Diff / Slide Review YES
[2025-03-04 18:50] LABS: Band Neutrophils Percent 1.0 % (3-7); Ferritin 51 ng/mL (18-464); Lymphocytes Percent Manual 10.0 % (25-45); Monocytes Percent Manual 7.0 % (2-11); Neutrophils Absolute Manual 6889 /uL (3000-5900); RBC Morphology Normal Morphology; Segmented Neutrophils Percent 82.0 % (38-70); Total Cells Counted 100
== END ==
PROVIDERS: PCP Internal Medicine; Visit Provider Nurse Practitioner Family
DX: M86.9 Osteomyelitis, unspecified (principal)
CPT/HCPCS: 82728; 85007; 85025; 85651; 86140

== ENCOUNTER → 2025-03-05 12:25 | Outpatient (ROUT) | payer MEDICARE, MEDICAID, SELFPAY ==
[2021-03-25 16:40] VITALS: BMI 28.8
== END ==
LOC: LAB 12:27
PROVIDERS: PCP Internal Medicine; Visit Provider Nurse Practitioner Family
DX: R79.1 Abnormal coagulation profile (principal)
CPT/HCPCS: 85384

== ENCOUNTER 2025-03-19 11:21 | Emergency (ER) | payer MEDICARE, MEDICAID, SELFPAY ==
[2021-03-25 16:40] VITALS: BMI 28.8
[2025-03-19] VITALS (20 sets, daily range): BP systolic 104–149; BP diastolic 62–93; PULSE 67–93; RESP 12–22; TEMP 36.4; O2SAT 91–98; BMI 29.5
--- NOTE | 2025-03-19 11:28 | DI.CT.S_ITS ---
PROCEDURE: CT HEAD/BRAIN WO CON INDICATIONS: increased confusion hx cva TECHNIQUE: Noncontrast 4.5 mm thick angled axial sections acquired from the foramen magnum to the vertex, with coronal and sagittal reformats. For radiation dose reduction, the following was used: automated exposure control, adjustment of mA and/or kV according to patient size. COMPARISON: [facility], CT, CT HEAD/BRAIN WO CON, 04/18/2021, 14:49. FINDINGS: Image quality: Diagnostic. CSF spaces: Basal cisterns are patent. No extra-axial fluid collections. The ventricles are symmetric in size and shape. Brain: No intracranial bleeds or mass effect. There is cerebral volume loss, with resultant ventricular and sulcal prominence. There are periventricular and deep white matter chronic small vessel ischemic changes. Old predominantly deep white matter right MCA distribution infarct extending to the cortex. Old bilateral lacunar infarcts. There is intracranial internal carotid artery atherosclerosis. Skull and face: Calvarium and visualized facial bones appear intact, without suspicious lesions. Sinuses: Visualized sinuses and mastoids are clear. IMPRESSION: Multiple old infarcts. Small vessel ischemic change. No acute intracranial process. Dictated by: Noel Jefferson M.D. on 03/19/2025 at 11:55 Approved by: Noel Jefferson M.D. on 03/19/2025 at 11:56
--- NOTE | 2025-03-19 11:29 | DI.RAD.S_ITS ---
PROCEDURE: XR CHEST 1V INDICATIONS: possible aspiration TECHNIQUE: One view of the chest was acquired. COMPARISON: [facility], CR, XR CHEST 1V, 11/21/2022, 14:51. FINDINGS: Surgical changes and devices: None. Lungs and pleura: Lungs are clear. No pleural effusions or pneumothorax. Mediastinum: Mediastinal contours appear normal. Calcified right mediastinal lymph node. Heart size is normal. Bones and chest wall: No suspicious bony lesions. Overlying soft tissues appear unremarkable. IMPRESSION: No acute cardiopulmonary abnormality is seen. Dictated by: Noel Jefferson M.D. on 03/19/2025 at 11:53 Approved by: Noel Jefferson M.D. on 03/19/2025 at 11:54
--- NOTE | 2025-03-19 11:29 | EKG_ITS ---
[facility] [address] [place] [address] Test Date: 2025-03-19 Pat Name: Chandu COX Department: [facility] Room: Gender: Male Engagement Manager: ROMAN : 1950 Requested By: Order Number: [id number] Reading MD: Saravanan Hernandez MD Measurements Intervals [place] Rate: 87 P: NM: QRS: 8 QRSD: 86 T: 46 QT: 380 QTc: 457 Interpretive Statements Atrial fibrillation Electronically Signed On 03-19-2025 11:58:27 PST by Saravanan Hernandez MD
--- OUTSIDE RECORDS SUMMARY | 2025-03-19 11:41 | XMS_ITS | Clinical Summary ---
Author Organization [employer] [facility] Address [address] [place] [address] Care Team Providers Care Cork Sorter Name Role Phone Selected, No Pcp Primary Care Provider Unavailab Sridevi Pink DDS Unavailable [phone] Social History Tobacco Use Types Packs/Day Years Used Date Smoking Tobacco: Never Assessed Sex and Gender Information Value Date Recorded Sex Assigned at Male 06/08/2023 8:39 AM PST Legal Sex Male 3:58 PM PDT Gender Identity Male 06/08/2023 8:39 AM PST Sexual Orientation Straight 06/08/2023 8: 39 AM PST Plan of Treatment Health Maintenance Due Date Last Done Comments CT Colonography 1950 Colon Cancer Screening 1950 Colonoscopy 1950 DEN: Dental Prophylaxis 1950 FIT Yearly 1950 FIT-DNA 1950 FOBT 1950 Sigmoidoscopy 1950 Depression Screening 1950 SCRN: FOR HEPATITIS C ROUTIN E (18-79 Years) 1967 IMM: DTAP/TDAP/TD (1 - Tdap) 1968 SCRN: FOR HYPERLIPIDEMIA (ADULT) 1989 IMM: Pneumococcal Vaccine (1 of 1 - PCV) 1999 IMM: SHINGRIX (1 of 2) 1999 Advance Care Planning 04/02/2024 Screen for Fall Risk (>65Y) 04/02/2024 IMM: RSV ( patients and Patients AGE > 60 YEARS OLD) (1 - 1-dose 75+ series) 2024 DEN: Dental Oral Exam 07/13/2024 07/13/2023 IMM: INFLUENZA (AGE > 6 GABRIEL HS) (#1) 12/01/2024 IMM: HEPATITIS A Aged Out No longer e ligible based on patient's age to complete this topic IMM: HEPATITIS B Aged Out No longer e ligible based on patient's age to complete this topic IMM: MENINGOCOCCAL ACWY Aged Out No l onger eligible based on patient's age to complete this topic IMM: RSV (AGE < 20 MONTHS) Aged Out N o longer eligible based on patient's age to complete this topic Procedures Procedure Name Priority Date/Time Associated Diagnosis Comments P COMPREHENSIVE ORAL EVALUATION - NEW OR ESTABLISHED PATIENT Routine 07/13/2023 10:00 AM PDT Encounter for dental examination from Last 3 Months or Most Recently Relevant to Health Maintenance Insurance DENTAL MCAID Care Teams Cork Sorter Relationship Specialty Start Date End Date Selected, No Pcp PCP - General PCP 06/08/23 Sridevi Walsh DDS [address] [place] [id number] Dentist Dentistry 06/08/23
--- NOTE | 2025-03-19 11:44 | ED.SOB ---
HPI - SOB/Dyspnea General Chief Complaint: Shortness of Breath/Dyspnea Stated Complaint: SOB Time Seen by Provider: 03/19/25 11:28 Source: EMS Mode of arrival: EMS History of Present Illness HPI Narrative: Patient is a 74-year-old male history of CVA with left-sided weakness peg tube resides at long-term care [facility] today with increasing confusion and shortness of breath. Per staff he may have aspirated a peanut butter and jelly sandwich last week. They noticed him becoming more short of breath he denies any fever. He is extremely hard of hearing but can answer some questions. He has an ongoing wound of his right foot my do not see that he is on antibiotics. He is afebrile. The facility had him on 3 L of oxygen but he typically is not on O2 here on room air he is 97%. POLST states DNR Related Data Home Medications ?Medication ?Instructions ?Recorded ?Confirmed atorvastatin 40 mg tablet 40 mg PO BEDTIME 03/25/21 10/05/22 famotidine 40 mg PO DAILY 03/25/21 10/05/22 levothyroxine 125 mcg tablet 125 mcg PO DAILY 03/25/21 10/05/22 losartan 25 mg tablet 25 mg PO DAILY 03/25/21 10/05/22 sertraline 50 mg tablet 50 mg PO DAILY 03/25/21 10/05/22 carvedilol 25 mg tablet (Coreg) 25 mg PO BID 10/05/22 10/05/22 doxazosin PO 10/05/22 10/05/22 losartan 25 mg tablet 25 mg PO DAILY 10/05/22 10/05/22 sennosides 8.6 mg capsule (senna) 8.6 mg PO DAILY 10/05/22 10/05/22 Previous Rx's ?Medication ?Instructions ?Recorded cephalexin 500 mg capsule 500 mg PO BID 7 days #14 caps 03/19/25 Allergies Allergy/AdvReac Type Severity Reaction Status Date / Time Macrolide Antibiotics Allergy Intermediate RASH Verified 10/16/24 20:17 (MACROLIDE ANTIBIOTICS) mercury (elemental) (MERCURY Allergy Mild RASH Verified 10/16/24 20:17 (ELEMENTAL)) erythromycin base Allergy Unknown RASH Verified 03/19/25 11:38 (ERYTHROMYCIN BASE) Patient History Social History details: Resides at [facility] at this time. household members: none lives independently: No Exam Initial Vital Signs Initial Vital Signs: Vital Signs Pulse Rate 74 03/19/25 11:25 Pulse Oximetry 93 03/19/25 11:25 Oxygen Delivery Method Room Air 03/19/25 11:25 GENERAL: Alert grunting 74-year-old male and in [no acute] distress. HEENT: Head atraumatic,EOMI, pupils reactive, face symmetric, [moist] mucous membranes CARDIOVASCULAR: Regular rate and rhythm without murmurs, rubs or gallops. RESPIRATORY: Breath sounds equal bilaterally, no wheezes rales or rhonchi. ABDOMEN: Soft, nontender. Normoactive bowel sounds all 4 quadrants. No guarding or rebound. Peg tube in place mildly tender EXTREMITIES: Normal range of motion, no clubbing or edema. Neurovascularly intact NEUROLOGICAL: Alert and oriented x4.Normal gait and speech. Cranial nerves II through XII grossly intact. SKIN: Warm, dry, no laceration, no petechiae, no rashes or lesions. Course Orders Ordered: ED Orders 03/19/25 11:15 Complete Blood Count AUTO DIFF Stat Comprehensive Metabolic Panel Stat Lactate (Lactic Acid) Stat Procalcitonin Stat Troponin & CK Cardiac Panel Stat 03/19/25 11:18 ESR [Erythrocyte Sedimentation Rate] Stat 03/19/25 11:28 CT head/brain wo con Stat 03/19/25 11:29 XR chest 1V Stat EKG-12 Lead Stat 03/19/25 11:43 XR foot LT min 3V Stat 03/19/25 11:45 Covid-19 + FLU A/B + RSV - PCR Stat 03/19/25 12:08 Blood Culture Stat CRP [C-Reactive Protein Quant] Stat NT-proBNP (BNP-Adult 18+) Stat 03/19/25 13:05 Urinalysis and Microscopic Stat Urine Culture Stat 03/19/25 15:40 Trop I [Troponin I] Stat Discontinued Medications Albuterol/Ipratropium (Albuterol/Ipratropium 3 Ml Ampul) 3 ml INH NOW ONE Stop: 03/19/25 15:08 Last Admin: 03/19/25 15:54 Dose: 3 ml Documented By: JAIME Furosemide (Furosemide 40 Mg/4 Ml Vial) 20 mg IV NOW ONE Stop: 03/19/25 15:08 Last Admin: 03/19/25 15:50 Dose: 20 mg Documented By: ROMAN Vital Signs Vital signs: Vital Signs - 8 hr 03/19/25 11:25 03/19/25 11:26 03/19/25 11:26 Temperature Pulse Rate 74 80 Respiratory Rate 18 Blood Pressure 113/77 Pulse Oximetry 93 92 Oxygen Delivery Method Room Air Room Air Oxygen Flow Rate Fraction of Inspired Oxygen 03/19/25 11:27 03/19/25 11:30 03/19/25 11:30 Temperature 97.6 F Pulse Rate 81 81 Respiratory Rate 22 19 Blood Pressure 104/75 104/75 Pulse Oximetry 95 98 Oxygen Delivery Method Room Air Room Air Oxygen Flow Rate Fraction of Inspired Oxygen 03/19/25 12:00 03/19/25 12:00 03/19/25 12:30 Temperature Pulse Rate 90 91 H Respiratory Rate 16 15 Blood Pressure 118/71 Pulse Oximetry 95 96 Oxygen Delivery Method Room Air Oxygen Flow Rate Fraction of Inspired Oxygen 03/19/25 12:30 03/19/25 13:00 03/19/25 13:00 Temperature Pulse Rate 93 H Respiratory Rate 22 Blood Pressure 111/79 122/68 Pulse Oximetry 91 Oxygen Delivery Method Room Air Oxygen Flow Rate Fraction of Inspired Oxygen 03/19/25 13:30 03/19/25 13:30 03/19/25 14:00 Temperature Pulse Rate 90 87 Respiratory Rate 20 13 Blood Pressure 144/90 H Pulse Oximetry 94 94 Oxygen Delivery Method Room Air Oxygen Flow Rate Fraction of Inspired Oxygen 03/19/25 14:00 03/19/25 14:30 03/19/25 14:30 Temperature Pulse Rate 83 Respiratory Rate 12 Blood Pressure 134/85 126/78 Pulse Oximetry 93 Oxygen Delivery Method Oxygen Flow Rate Fraction of Inspired Oxygen 03/19/25 15:00 03/19/25 15:00 03/19/25 15:30 Temperature Pulse Rate 88 Respiratory Rate 12 Blood Pressure 142/90 H 131/85 Pulse Oximetry 95 Oxygen Delivery Method Room Air Oxygen Flow Rate Fraction of Inspired Oxygen 03/19/25 15:30 03/19/25 15:54 03/19/25 16:00 Temperature Pulse Rate 88 80 Respiratory Rate 12 16 Blood Pressure 126/87 Pulse Oximetry 95 95 Oxygen Delivery Method Room Air Oxygen Flow Rate 0 Fraction of Inspired Oxygen 21 03/19/25 16:00 03/19/25 16:30 03/19/25 16:31 Temperature Pulse Rate 82 88 Respiratory Rate 14 16 Blood Pressure 144/62 H Pulse Oximetry 94 94 Oxygen Delivery Method Oxygen Flow Rate Fraction of Inspired Oxygen 03/19/25 16:31 03/19/25 17:00 03/19/25 17:00 Temperature Pulse Rate 86 85 Respiratory Rate 14 13 Blood Pressure 141/82 H Pulse Oximetry 94 94 Oxygen Delivery Method Oxygen Flow Rate Fraction of Inspired Oxygen 03/19/25 17:30 03/19/25 17:30 03/19/25 18:00 Temperature Pulse Rate 85 Respiratory Rate 15 Blood Pressure 149/89 H 148/93 H Pulse Oximetry 92 Oxygen Delivery Method Oxygen Flow Rate Fraction of Inspired Oxygen 03/19/25 18:00 03/19/25 18:30 03/19/25 18:30 Temperature Pulse Rate 80 67 Respiratory Rate 14 Blood Pressure 144/89 H Pulse Oximetry 94 93 Oxygen Delivery Method Oxygen Flow Rate Fraction of Inspired Oxygen MDM - SOB/Dyspnea Lab Data 03/19/25 11:15 03/19/25 11:15 Labs: Lab Results 03/19/25 03/19/25 03/19/25 Range/Units 11:15 11:18 11:45 WBC 9.2 (4.5-11.0) X10^3/uL RBC 4.12 L (4.5-5.9) X10^6/uL Hgb 13.4 L (13.5-17.5) g/dL Hct 40.7 L (41-53) % MCV 99.0 (80-100) fL MCH 32.5 (26-34) PG MCHC 32.8 (30-36) % RDW 17.3 H (11.6-14.8) % Plt Count 135 L (150-400) X10^3/uL Neut % (Auto) 84.1 H (50-75) % Lymph % (Auto) 10.2 L (25-40) % Gonzales % (Auto) 4.7 (3-14) % Eos % (Auto) 0.5 L (2-4) % Baso % (Auto) 0.5 (0-2) % Neut # (Auto) 7700 H (0220-3185) /uL Lymph # (Auto) 900 L (8717-0102) /uL Gonzales # (Auto) 400 (0-900) /uL Eos # (Auto) 0 (0-450) /uL Baso # (Auto) 0 (0-100) /uL ESR 19 H (0-15) MM/HR Sodium 141 (137-145) mmol/L Potassium 4.1 (3.4-5.1) mmol/L Chloride 109 H (98-107) mmol/L Carbon Dioxide 23 (22-32) mmol/L BUN 34 H (9-20) mg/dL Creatinine 1.31 H (0.66-1.25) mg/dL Estimated GFR 57 L (>60) mL/min BUN/Creatinine Ratio 26.0 H (6-22) Glucose 94 (70-99) mg/dL Lactate 1.9 (0.7-2.1) mmol/L Calcium 8.5 (8.4-10.2) mg/dL Total Bilirubin 1.2 (0.2-1.3) mg/dL AST 42 (17-59) IU/L ALT 20 (<50) IU/L Alkaline Phosphatase 52 (38-126) U/L Total Creatine Kinase 26 L (55-170) U/L Troponin I 0.028 (0.01-0.034) ng/mL C-Reactive Protein (<1.0) mg/dL NT-Pro-B Natriuret Pep (<450) pg/mL Total Protein 6.4 (6.3-8.2) g/dL Albumin 3.4 L (3.5-5.0) g/dL Globulin 3.0 (1.7-4.1) g/dL Albumin/Globulin Ratio 1.1 (1.0-2.8) Procalcitonin 0.077 (<0.5) ng/mL Urine Color Urine Appearance Urine pH (4.5-8.0) Ur Specific [place] (1.000-1.035) Urine Protein (Negative) Urine Glucose (UA) (Negative) g/dL Urine Ketones (NEGATIVE) Urine Occult Blood (Negative) Urine Nitrate (Negative) Urine Bilirubin (NEGATIVE) Urine Urobilinogen (0.2) E.U./dL Ur Leukocyte Esterase (NEGATIVE) Urine RBC (0-5/HPF) Urine WBC (0-5/HPF) Ur Squamous Epith Cells (0-5/HPF) Urine Bacteria (None) Ur Culture Indicated? Vol Urine Centrifuged SARS-CoV-2 (PCR) Negative (Negative) Influenza A (RT-PCR) Flu a negative (NEGATIVE) Influenza B (RT-PCR) Flu b negative (NEGATIVE) RSV (PCR) Negative (Negative) 03/19/25 03/19/25 03/19/25 Range/Units 12:08 13:05 15:40 WBC (4.5-11.0) X10^3/uL RBC (4.5-5.9) X10^6/uL Hgb (13.5-17.5) g/dL Hct (41-53) % MCV (80-100) fL MCH (26-34) PG MCHC (30-36) % RDW (11.6-14.8) % Plt Count (150-400) X10^3/uL Neut % (Auto) (50-75) % Lymph % (Auto) (25-40) % [place] % (Auto) (3-14) % Eos % (Auto) (2-4) % Baso % (Auto) (0-2) % Neut # (Auto) (2673-1849) /uL Lymph # (Auto) (6250-8137) /uL Gonzales # (Auto) (0-900) /uL Eos # (Auto) (0-450) /uL Baso # (Auto) (0-100) /uL ESR (0-15) MM/HR Sodium (137-145) mmol/L Potassium (3.4-5.1) mmol/L Chloride (98-107) mmol/L Carbon Dioxide (22-32) mmol/L BUN (9-20) mg/dL Creatinine (0.66-1.25) mg/dL Estimated GFR (>60) mL/min BUN/Creatinine Ratio (6-22) Glucose (70-99) mg/dL Lactate (0.7-2.1) mmol/L Calcium (8.4-10.2) mg/dL Total Bilirubin (0.2-1.3) mg/dL AST (17-59) IU/L ALT (<50) IU/L Alkaline Phosphatase (38-126) U/L Total Creatine Kinase (55-170) U/L Troponin I 0.028 (0.01-0.034) ng/mL C-Reactive Protein 0.7 (<1.0) mg/dL NT-Pro-B Natriuret Pep 465 H (<450) pg/mL Total Protein (6.3-8.2) g/dL Albumin (3.5-5.0) g/dL Globulin (1.7-4.1) g/dL Albumin/Globulin Ratio (1.0-2.8) Procalcitonin (<0.5) ng/mL Urine Color Yellow Urine Appearance Clear Urine pH 5.5 (4.5-8.0) Ur Specific [place] <=1.005 (1.000-1.035) Urine Protein Negative (Negative) Urine Glucose (UA) Negative (Negative) g/dL Urine Ketones Negative (NEGATIVE) Urine Occult Blood Negative (Negative) Urine Nitrate Positive H (Negative) Urine Bilirubin Negative (NEGATIVE) Urine Urobilinogen 1.0 (0.2) E.U./dL Ur Leukocyte Esterase 2+ H (NEGATIVE) Urine RBC None seen (0-5/HPF) Urine WBC 1-5/hpf (0-5/HPF) Ur Squamous Epith Cells 0-1 /hpf (0-5/HPF) Urine Bacteria Many (>30) H (None) Ur Culture Indicated? Specimen cultured Vol Urine Centrifuged 10ml (spun) SARS-CoV-2 (PCR) (Negative) Influenza A (RT-PCR) (NEGATIVE) Influenza B (RT-PCR) (NEGATIVE) RSV (PCR) (Negative) Imaging Data Chest x-ray: Radiologist's Impression: PROCEDURE: XR CHEST 1V INDICATIONS: possible aspiration TECHNIQUE: One view of the chest was acquired. COMPARISON: [facility], , XR CHEST 1V, 11/21/2022, 14:51. FINDINGS: Surgical changes and devices: None. Lungs and pleura: Lungs are clear. No pleural effusions or pneumothorax. Mediastinum: Mediastinal contours appear normal. Calcified right mediastinal lymph node. Heart size is normal. Bones and chest wall: No suspicious bony lesions. Overlying soft tissues appear unremarkable. IMPRESSION: No acute cardiopulmonary abnormality is seen. Dictated by: Noel Jefferson M.D. on 03/19/2025 at 11:53 Extremity x-ray #1: Radiologist's Impression: PROCEDURE: XR FOOT LT MIN 3V INDICATIONS: Osteomyelitis TECHNIQUE: 3 views of the foot were acquired. COMPARISON: None. FINDINGS: Bones: No fractures or dislocations. Diffuse osteopenia. No plain film evidence of osteomyelitis. No suspicious bony lesions. Soft tissues: No tibiotalar joint effusion. Achilles tendon appears normal. IMPRESSION: Diffuse osteopenia. No plain film evidence of osteomyelitis. Comment: If continue to suspect acute osteomyelitis, consider nonemergent foot MRI with and without contrast. Dictated by: Noel Jefferson M.D. on 03/19/2025 at 12:50 Approved by: Noel Jefferson M.D. on 03/19/2025 at 12:51 ECG Data Attestation: I personally reviewed and interpreted this ECG as follows: Prior ECG tracings: available for review Interpretation: Atrial fibrillation rate 87 no acute ischemia similar to prior MDM Narrative Medical decision making narrative: MDM CC: Possible confusion shortness of Complicating co-morbidities: CVA with left hemiparesis, atrial fibrillation aspiration peg tube Data collected from: EMS Medical records reviewed: Last record is from 10/16/2024 for dislodgement of the PEG tube minimal other records available Differential considered: Sepsis aspiration UTI intracranial hemorrhage congestive heart failure pneumonia viral Exam documented above, pertinent findings include: Patient is extremely hard of hearing alert able to follow commands and answer questions if you talk loud enough. He has a chronic ongoing wound in his left anterior foot. Lab Test results independently reviewed as above. Pertinent findings: CBC no leukocytosis no anemia mild left shift CMP no significant electrolyte abnormality creatinine 1.31 Lactate 1.9 Procalcitonin 0.077 CRP 0.7 ESR 19 Troponin 0.028 -->0.028, BNP 465 Urinalysis positive for nitrates Independently reviewed EKG as above Atrial fibrillation rate control Imaging studies independently reviewed: Chest x-ray no acute cardiopulmonary process, no aspiration Foot x-ray no evidence of osteomyelitis Consultations: [ ] Treatments: None Re-evaluations: Patient has been resting in the ED not hypoxic does not appear short of breath but says he is short of breath. Given albuterol not sure if it has helped him or not. He was also given Lasix. Discussion: Patient is 74-year-old male presenting today with increasing confusion possible hypoxia he is not hypoxic here not requiring any oxygen. There was concern for possible aspiration x-ray does not show aspiration. No concern for sepsis he has no leukocytosis. Mild elevation of ESR only. He has a current ongoing left foot infection but no evidence of osteomyelitis at this time he is followed by wound care. He does not have a UTI he does not appear septic. He received albuterol treatment and Lasix. He has urinated but not a significant amount he does not appear to be fluid overloaded BNP is only 465. He is not hypoxic he is not in any kind of respiratory distress sleeping on and off in the ED. At this time no need for admission. Discharge Plan Departure Patient Disposition: Home Clinical Impression: Acute UTI Instructions: DI for Urinary Tract Infection (UTI) Activity Restrictions/Additional Instructions: *You have been diagnosed with UTI *What to do: At this time no cause for shortness of breath. There was no aspiration pneumonia, he does have a UTI *Continue to take medications as directed Keflex 500 mg twice a day for 7 *Follow up with your primary care provider in 2-3 days or call [phone] *Return to ER if you should have increasing confusion shortness of breath or any new, worsening or concerning symptoms Prescriptions: New cephalexin 500 mg capsule 500 mg PO BID 7 Days Qty: 14 0RF No Action carvedilol [Coreg] 25 mg tablet 25 mg PO BID Rx Instructions: must administer with a meal/food doxazosin PO losartan 25 mg tablet 25 mg PO DAILY senna 8.6 mg capsule 8.6 mg PO DAILY losartan 25 mg tablet 25 mg PO DAILY sertraline 50 mg tablet 50 mg PO DAILY atorvastatin 40 mg tablet 40 mg PO BEDTIME levothyroxine 125 mcg tablet 125 mcg PO DAILY famotidine 40 mg 40 mg PO DAILY Referrals: Juan Chilel MD [Primary Care Provider, Internal Medicine] Stand Alone Forms: Patient Portal/API
[2025-03-19 11:48] LABS: Add Manual Diff / Slide Review NO; Hematocrit 40.7 % (41-53); Hemoglobin 13.4 g/dL (13.5-17.5); Lymphocytes Absolute Auto 900 /uL (1100-4500); Mean Corpuscular HGB Conc 32.8 % (30-36); Mean Corpuscular Hemoglobin 32.5 PG (26-34); Mean Corpuscular Volume 99.0 fL (80-100); Platelet Count 135 X10^3/uL (150-400)
[2025-03-19 12:04] LABS: Creatine Kinase 26 U/L (55-170); Lactate (Lactic Acid) 1.9 mmol/L (0.7-2.1)
[2025-03-19 12:15] LABS: Alanine Aminotransferase 20 IU/L (<50); Albumin 3.4 g/dL (3.5-5.0); Albumin Globulin Ratio 1.1 (1.0-2.8); Alkaline Phosphatase 52 U/L (38-126); Blood Urea Nitrogen 34 mg/dL (9-20); Calcium 8.5 mg/dL (8.4-10.2); Carbon Dioxide 23 mmol/L (22-32); Chloride 109 mmol/L (98-107); Estimated Glomerular Filt Rate 57 mL/min (>60); Globulin 3.0 g/dL (1.7-4.1); Glucose 94 mg/dL (70-99); HEMOLYSIS 36 (0-50); Potassium 4.1 mmol/L (3.4-5.1); Sodium 141 mmol/L (137-145); Total Protein 6.4 g/dL (6.3-8.2)
[2025-03-19 12:16] LABS: Troponin I 0.028 ng/mL (0.01-0.034)
[2025-03-19 12:32] LABS: Procalcitonin 0.077 ng/mL (<0.5)
[2025-03-19 12:40] LABS: Influenza A - CEPHEID Flu A NEGATIVE (NEGATIVE); Influenza B - CEPHEID Flu B NEGATIVE (NEGATIVE)
[2025-03-19 12:46] LABS: NT-proBNP (BNP-Adult 18+) 465 pg/mL (<450)
[2025-03-19 13:06] LABS: COVID-19 CEPHEID 4-PLEX PCR Negative (Negative)
[2025-03-19 13:44] LABS: Appearance Urine UA CLEAR; Bilirubin Urine UA NEGATIVE (NEGATIVE); Color Urine UA YELLOW; Glucose Urine UA NEGATIVE (Negative); Ketones Urine UA NEGATIVE (NEGATIVE); Leukocyte Esterase Urine UA 2+ (NEGATIVE); Nitrite Urine UA POSITIVE (Negative); Occult Blood Urine UA NEGATIVE (Negative); Protein Urine UA NEGATIVE (Negative); Specific Gravity Urine UA <=1.005 (1.000-1.035); Urobilinogen Urine UA 1.0 E.U./dL (0.2); pH Urine UA 5.5 (4.5-8.0)
[2025-03-19 14:03] LABS: Culture Indicated Urine Specimen Cultured
[2025-03-19] MEDS: FUROSEMIDE 40 MG/4 ML VIAL 20 MG IV (15:50)
[2025-03-19] MEDS: ALBUTEROL/IPRATROPIUM 3 ML AMPUL INH (15:54)
[2025-03-19 16:23] LABS: Troponin I 0.028 ng/mL (0.01-0.034)
--- NOTE | 2025-03-19 17:16 | PC.NURSE ---
Report given to Sarina at [employer] @ [phone].
[2025-03-20 13:44] LABS: Acinetobacter calcoa-baumannii Not Detected (Not Detect); Bacteroides fragilis Not Detected (Not Detect); Candida auris Not Detected (Not Detect); Candida glabrata Not Detected (Not Detect); Cryptococcus neoformans/gatti Not Detected (Not Detect); Enterobacterales Not Detected (Not Detect); Enterococcus faecalis Not Detected (Not Detect); Enterococcus faecium Not Detected (Not Detect); Klebsiella aerogenes Not Detected (Not Detect); Proteus species Not Detected (Not Detect); Serratia marcescens Not Detected (Not Detect); Staphylococcus epidermidis Detected (Not Detect); Staphylococcus lugdunensis Not Detected (Not Detect); Staphylococcus species Detected (Not Detect); Stenotrophomonas maltophilia Not Detected (Not Detect); Streptococcus agalactiae (Gr B Not Detected (Not Detect); Streptococcus pneumonia Not Detected (Not Detect); Streptococcus pyogenes (Gr A) Not Detected (Not Detect); Streptococcus species Not Detected (Not Detect); mecA/C Resistance Detected (Not Detect)
--- NOTE | 2025-03-21 09:57 | PC.NURSE ---
call placed to [facility] for patient. spoke to DAVID Hood. Advised that pt's urine culture is positive and resistant to most abx except Ertapenum. Advised to transfer pt over for IV placement and abx infusion. Sana advised pt can keep IV in place for up to 72hrs for continued abx treatment at [facility] and rx needs to be sent to [facility] for delivery to facility. Dr Mena.
== END 2025-03-19 18:55 | disposition home or self-care (01) ==
PROVIDERS: Emergency Provider Emergency Medicine; PCP Internal Medicine
DX: N39.0 Urinary tract infection, site not specified (principal); B96.20 Unspecified Escherichia coli [E. coli] as the cause of diseases classified elsewhere; Z16.12 Extended spectrum beta lactamase (ESBL) resistance; R53.1 Weakness; R41.0 Disorientation, unspecified
CPT/HCPCS: 70450; 71045; 73630; 80053; 81001; 82550; 83605; 83880; 84145; 84484; 85025; 85651; 86140; 87040; 87077; 87086; 87154; 87186; 87637; 93005; 93010; 94640; 96374; 99284; J1938

== ENCOUNTER 2025-03-21 14:17 | Emergency (ER) | payer MEDICARE, MEDICAID, SELFPAY ==
[2021-03-25 16:40] VITALS: BMI 28.8
[2025-03-21 14:32] VITALS: BP 100/60; PULSE 73; RESP 20; TEMP 36.4; O2SAT 94; BMI 28.1
--- NOTE | 2025-03-21 14:52 | ED.RECABL ---
HPI - Recheck/Abnormal Lab/Rx General Chief Complaint: Recheck/Abnormal Lab/Rx Stated Complaint: sent from [facility]/possible iv? Time Seen by Provider: 03/21/25 14:29 History of Present Illness HPI narrative: 74-year-old male returning from long-term care facility at my request after urine culture resulted with EBSL E. coli susceptible to ertapenem or meropenem. He was seen in the ER on 03/19/25 for confusion and shortness of breath where urine sample was obtained. No fever, chills, nausea, vomiting. Related Data Home Medications ?Medication ?Instructions ?Recorded ?Confirmed atorvastatin 40 mg tablet 40 mg PO BEDTIME 03/25/21 10/05/22 famotidine 40 mg PO DAILY 03/25/21 10/05/22 levothyroxine 125 mcg tablet 125 mcg PO DAILY 03/25/21 10/05/22 losartan 25 mg tablet 25 mg PO DAILY 03/25/21 10/05/22 sertraline 50 mg tablet 50 mg PO DAILY 03/25/21 10/05/22 carvedilol 25 mg tablet (Coreg) 25 mg PO BID 10/05/22 10/05/22 doxazosin PO 10/05/22 10/05/22 losartan 25 mg tablet 25 mg PO DAILY 10/05/22 10/05/22 sennosides 8.6 mg capsule (senna) 8.6 mg PO DAILY 10/05/22 10/05/22 Previous Rx's ?Medication ?Instructions ?Recorded cephalexin 500 mg capsule 500 mg PO BID 7 days #14 caps 03/19/25 ertapenem 1 gram solution for 1 g IV DAILY 6 days 03/21/25 injection ertapenem 1 gram solution for 1 g IV DAILY 6 days 03/21/25 injection ertapenem 1 gram solution for 1 g IV DAILY 6 days 03/21/25 injection Allergies Allergy/AdvReac Type Severity Reaction Status Date / Time Macrolide Antibiotics Allergy Intermediate RASH Verified 10/16/24 20:17 (MACROLIDE ANTIBIOTICS) mercury (elemental) (MERCURY Allergy Mild RASH Verified 10/16/24 20:17 (ELEMENTAL)) erythromycin base Allergy Unknown RASH Verified 03/19/25 11:38 (ERYTHROMYCIN BASE) Review of Systems Review of Systems Narrative: See HPI. Patient History Social History details: Resides at [facility] at this time. household members: none lives independently: No Exam Narrative Exam Narrative: Vitals: Reviewed. Gen: Well developed, well nourished elderly man sitting in [place], NAD. Cards: Regular rate, no murmurs, rubs, gallops. Pulm: No increased work of breathing. Clear to auscultation bilaterally. Abd: Obese, nondistended, nontender Ext: No peripheral edema in bilateral lower extremities. Initial Vital Signs Initial Vital Signs: Vital Signs Temperature 97.6 F 03/21/25 14:32 Pulse Rate 73 03/21/25 14:32 Respiratory Rate 20 03/21/25 14:32 Blood Pressure 100/60 03/21/25 14:32 Pulse Oximetry 94 03/21/25 14:32 Oxygen Delivery Method Room Air 03/21/25 14:32 Course Course Course Narrative: 1452 Patient seen in triage. Will order antibiotics. Orders Ordered: Discontinued Medications Ertapenem 1 gm/ Sodium (Chloride) 100 mls @ 200 mls/hr IV NOW ONE Stop: 03/21/25 14:31 Last Infusion: 03/21/25 15:56 Dose: Infused Documented By: Admin: 03/21/25 15:15 Dose: 200 mls/hr Documented By: SAAD Vital Signs Vital signs: Vital Signs - 8 hr 03/21/25 14:32 Temperature 97.6 F Pulse Rate 73 Respiratory Rate 20 Blood Pressure 100/60 Pulse Oximetry 94 Oxygen Delivery Method Room Air MDM - Recheck/Abnormal Lab/Rx MDM Narrative Medical decision making narrative: Patient is a 74-year-old male history of CVA with left-sided weakness peg tube resides at long-term care facility who was seen on 03/19/25 for increasing confusion and shortness of breath. Urine culture returned today positive for EBSL E. coli that is only susceptible to ertapenem or meropenem. I was informed that patient would need to return to the ER to initiate IV antibiotics and subsequent [facility] if he was discharged with a prescription. Patient was given 1 g ertapenem and discharged with additional 6 day course. Discharge Plan Departure Patient Disposition: Home Clinical Impression: Urinary tract infection due to extended-spectrum beta lactamase (ESBL) producing Escherichia coli Instructions: DI for Urinary Tract Infection (UTI) Activity Restrictions/Additional Instructions: You were asked to return to the emergency department after your urine culture was positive for urinary tract infection and not susceptible to oral antibiotics. You were given your 1st dose of IV antibiotics and discharge with a prescription for 6 more days of IV antibiotics. Please follow up at the [facility] for continued management of your urinary tract infection. Prescriptions: New ertapenem 1 gram recon soln 1 g IV DAILY 6 Days ertapenem 1 gram recon soln 1 g IV DAILY 6 Days ertapenem 1 gram recon soln 1 g IV DAILY 6 Days No Action carvedilol [Coreg] 25 mg tablet 25 mg PO BID Rx Instructions: must administer with a meal/food doxazosin PO losartan 25 mg tablet 25 mg PO DAILY senna 8.6 mg capsule 8.6 mg PO DAILY losartan 25 mg tablet 25 mg PO DAILY sertraline 50 mg tablet 50 mg PO DAILY atorvastatin 40 mg tablet 40 mg PO BEDTIME levothyroxine 125 mcg tablet 125 mcg PO DAILY famotidine 40 mg 40 mg PO DAILY cephalexin 500 mg capsule 500 mg PO BID 7 Days Qty: 14 0RF Referrals: Juan Chilel MD [Primary Care Provider, Internal Medicine] Stand Alone Forms: Patient Portal/API
[2025-03-21] MEDS: ERTAPENEM 1 GM in SODIUM CHLORIDE 0.9% 100 ML IV (15:15)
[2025-03-21 16:23] VITALS: BP 98/58; PULSE 68; RESP 18; O2SAT 95
== END 2025-03-21 16:26 | disposition home or self-care (01) ==
PROVIDERS: Emergency Provider Student in an Organized Health Care Education/Training Program; PCP Internal Medicine
DX: N39.0 Urinary tract infection, site not specified (principal); B96.29 Other Escherichia coli [E. coli] as the cause of diseases classified elsewhere
CPT/HCPCS: 36415; 96365; 99284; J1335; J7050